=== PATIENT | male | born 1965 | race Caucasian/White ===

== ENCOUNTER → 2018-06-23 09:53 | Outpatient (CLI) | payer OTHER, SELFPAY ==
[2017-09-14 10:24] VITALS: BMI 29.8
--- NOTE | 2018-06-23 09:55 | RAD_ITS ---
STUDY: X-RAY - RIGHT KNEE REASON FOR EXAM: Knee pain. TECHNIQUE: 4 view(s) of the knee. COMPARISON: Radiographs 07/16/2016. FINDINGS: There are postoperative changes of the distal femur and proximal tibia from anterior cruciate ligament reconstruction. Normal proximal tibiofibular articulation. There is moderately severe joint space narrowing of the medial femorotibial compartment similar to the prior study. There is moderate joint space narrowing of the lateral femorotibial compartment, increased since the prior study. Normal patellofemoral articulation. There is a small joint effusion. 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 Small joint effusion. Electronically Signed: Magdiel Cornelius MD at 12:55 EST Tel , Service support ,
== END ==
PROVIDERS: Referring Provider Orthopaedic Surgery; Visit Provider Orthopaedic Surgery
DX: M25.561 Pain in right knee (principal)
CPT/HCPCS: 73564

== ENCOUNTER → 2023-08-13 | Outpatient (CLI) | payer OTHER, SELFPAY ==
[2023-08-13 12:22] LABS: Absolute Lymphocyte Count 1.41 X10^3/uL (0.83-4.51); Absolute Neutrophil Count 2.8 X10^3/uL (2.0-7.7); Basophil# 0.04 X10^3/uL; Basophil% 0.8 % (0-1); Eosinophil# 0.33 X10^3/uL; Eosinophils% 6.5 % (0-5); Hematocrit 44.2 % (40-54); Hemoglobin 14.8 g/dL (13.0-16.5); Lymphocyte # 1.41 X10^3/ul (0.83-4.51); Lymphocyte % 27.6 % (19-41); Mean Corp Hgb Conc 33.5 g/dL (32-36); Mean Corpuscular Hgb 30.2 pg (27.0-32.0); Mean Corpuscular Volume 90.2 fL (80-94); Mean Platelet Vol. 8.9 fl (6.2-12.0); Monocyte# 0.48 X10^3/uL; Monocyte% 9.4 % (0-10); NRBC Flagged by Analyzer 0 % (0-5); Neutrophil # 2.82 X10^3/uL (2.7-7.7); Neutrophil % 55.3 % (47-70); Platelet Count 253 K/mm3 (150-450); RBC Distribution Width CV 13.1 % (11.6-14.6); RBC Distribution Width SD 43.3 fl (35.1-43.9); White Blood Count 5.1 K/mm3 (4.4-11.0)
[2023-08-13 12:50] LABS: ALB/GLOB Ratio 1.1 RATIO (0.9-2.4); AST(SGOT) 23 U/L (15-37); Alanine Aminotransfer ALT/SGPT 51 U/L (16-61); Albumin, Serum 3.7 g/dL (3.2-5.0); Alkaline Phosphatase 55 U/L (45-117); Anion Gap 5 (5-15); BUN 22 mg/dL (7-18); BUN/Creat Ratio 22.6 RATIO (10-20); Calcium,Total 8.8 mg/dL (8.5-10.1); Chloride 109 mmol/L (98-107); Cholesterol 246 mg/dL (200); Creatinine, Serum 0.98 mg/dL (0.70-1.30); EST Glomerular Filtration Rate 84 mL/min (>60); Est Glom Filt Rate - Afr Amer 101 mL/min (>60); Globulin 3.4 g/dL (2.2-4.2); Glucose 119 mg/dL (74-106); High Density Lipoprotein 45 mg/dL; Potassium 4.2 mmol/L (3.5-5.1); Protein, Total 7.1 g/dL (6.4-8.2); Sodium Level 141 mmol/L (136-145); Triglycerides 166 mg/dL; Very Low Density Lipoprotein 33 mg/dL (5-40)
== END | disposition home or self-care (01) ==
LOC: BFHLAB 10:16
PROVIDERS: PCP Family Medicine; Visit Provider Family Medicine
DX: K21.9 Gastro-esophageal reflux disease without esophagitis (principal); F32.A Depression, unspecified; E78.5 Hyperlipidemia, unspecified
CPT/HCPCS: 36415; 80053; 80061; 85025

== ENCOUNTER 2023-12-30 13:00 | Outpatient (RCR) | payer OTHER, SELFPAY ==
--- NOTE | 2023-12-02 17:36 | HP.PTEVAL_ITS ---
Patient's Visit Information Visit Information Visit Information: PAULO RAMIRES is a 58 year old M referred to Physical Therapy by Dr. Raj Deal DO with a diagnosis of L TKA 11/29/23. Date of Evaluation: 12/02/23 Physical Therapist: Vazquez Reyes, PT, ATC Visit Plan Frequency: 2-3x /Week Duration: 4-6 Weeks Plan: L knee PROM/mobs, stretching and strengthening, balance and proprio, core strengthening, nustep, and HEP Subjective Subjective: DOS: 11/29/23. Pt reports he has had R knee pain chronically prior to having his R TKA. Pt reports he is glad to have had this surgery. Pt reports he was not is constant pain prior to the surgery, but notes he was very limited with activity secondary to pain. 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 Pt reports occasional sleep difficulty at this time secondary to pain. Pt denies any tingling or numbness in L LE at this time. Pt reports an extensive PMHx of knee complications in both of his knees as he has no ACL in either knee secondary to past injuries. Pt also notes a Hx of L compound tibial fx with ORIF. Pt reports he fully plans to return to performing his work duties when his healing is complete. Pt reports he lives mainly on one floor, but has to negotiate 3 steps to get into his house, which he is able to one step at a time. L knee pain is 1/10 pain while sitting here at rest, and only increases to 2/10 at worst. Pain L knee pain: Pain Intensity (Out of 10): 1 Pain Intensity Range: 2 Objective Objective: Neuro: B LE sensation is WNL to light touch Observation: Incision is healing well with not signs of infection. Bandage strip still present. ROM: L knee 0-10-60, R knee 0-125 MMT: R knee flex= 43, ext= 46 #F; L knee flex= 23, ext= 7 #F Tu.5 sec Balance/Special Test Scores WOMAC Total Score: 28 WOMAC Percentatge: 70.8400 Goals Goal 1:: Decrease L knee pain x 50% to aid with sleep Goal Time Frame: 4-6 Weeks Goal 2:: Increase L knee strength x 1 grade to aid with stair negotyiation Goal Time Frame: 4-6 Weeks Goal 3:: Increase L knee ROM x 40 degrees to aid with return to work requirements Goal Time Frame: 4-6 Weeks Goal 4:: I with HEP Goal Time Frame: 4-6 Weeks Rehabilitation Potential Physical Therapy Diagnosis: Pt has L knee pain, weakness, and limited ROM secondary to L TKA Rehabilitation Potential: Good Anticipated Interventions Patient/Client Instruction: Educate patient on: Condition and Plan of Care For the Purpose of:: To decrease pain, To increase ROM and To improve muscle performance and motor function Therapeutic Exercise to Include: Strength training, Endurance training, Balance training, Flexibilty training, Gait and locomotor training, Passive ROM, Active ROM and Dynamic Lumbar Stabilization For the Purpose of:: To decrease pain, To increase ROM and To improve muscle performance and motor function Cryotherapy (ice pack, ice massage): Yes For the Purpose of:: To decrease pain Text: Thank you for the opportunity to evaluate your patient. For Medicare and Medicare HMO plans, please review the plan of care and approve it. It will need to be FAXED BACK to us at [phone] for Medicare purposes. For Medicare only, by signing this I certify the plan of care. Please let me know if there are questions or concerns regarding this plan of care. Physician Signature: Date:
--- NOTE | 2023-12-30 14:26 | HP.PTDCSUM_ITS ---
Discharge Summary D/C summary: It has been my pleasure to treat PAULO RAMIRES referred by Dr. Raj Deal DO, with the diagnosis of L TKA 11/29/23 for a total of 9 visit(s). Discharge Date: 12/30/23 Please see the following information for a summary of their discharge status. Subjective Subjective: PATIENT REPORTS HE FEELS LIKE HIS KNEE REPLACEMENT HAS GONE REALLY WELL. PATIENT STATES I FEEL LIKE I SHOULD KEEP DOING MORE AT HOME. PATIENT REPORTS HE WANTS TO SAVE VISITS FOR HAVING HIS R KNEE DONE THIS YEAR SO HE WOULD LIKE TO BE DISCHARGED. Pain L knee pain: Pain Intensity (Out of 10): 3 Overall Improvement % Improvement: 75 Objective Objective/Function: ROM: L knee 0-0-105 MMT: R knee flex= 44.1, ext= 48.9 #F; L knee flex= 35.5, ext= 39.2 #F Tu.85 sec Girth Measurement L knee at joint line: 43.75 cm WOMAC Total Score: 35 Steps: ascends recip with one HR. descends one step at a time leading with RLE (R TKR pending). Other: patient has a stitch protruding at the bottom of his incision. He reports he noticed it about a week ago and has been pulling at it. This PT r ecommended he cover it and leave it alone until he see's Dr. Deal and to seek medical attention right away if it starts to show signs of infection. No signs of infection currently. Goals Goal 1:: Decrease L knee pain x 50% to aid with sleep Goal Progress: Goal Met Goal 2:: Increase L knee strength x 1 grade to aid with stair negotyiation Goal Progress: Goal Met Goal 3:: Increase L knee ROM x 40 degrees to aid with return to work requirements Goal Progress: Goal Met Goal 4:: I with HEP Goal Progress: Progressing Plan Plan: D/C AT PATIENTS REQUEST. D/C Information d/c sentence: If there are questions or concerns regarding this patient's physical therapy, please feel free to call me at [phone]. Thank you for the referral of this patient. Sincerely, Belinda Prince, PT, Cert MDT Balance/Gait/Functional tests Balance/Special Test Scores WOMAC Total Score: 35 WOMAC Percentage: 63.5500 Improvement % Improvement: 75
== END 2023-12-30 19:00 | disposition home or self-care (01) ==
LOC: PT 13:00
PROVIDERS: PCP Family Medicine; Referring Provider Orthopaedic Surgery; Visit Provider Orthopaedic Surgery
DX: Z47.1 Aftercare following joint replacement surgery (principal); M17.12 Unilateral primary osteoarthritis, left knee; Z96.652 Presence of left artificial knee joint
CPT/HCPCS: 97110; 97140; 97161; 97530

== ENCOUNTER 2024-06-22 19:53 | Observation (INO) | payer OTHER, SELFPAY ==
[2024-06-22 19:54] VITALS: BP 149/88; PULSE 109; RESP 20; TEMP 36.3; O2SAT 96; BMI 28.3
--- NOTE | 2024-06-22 20:44 | EKG12_ITS ---
Test Reason : CP Blood Pressure : */* mmHG Vent. Rate : 91 BPM Atrial Rate : 91 BPM P-R Int : 164 ms QRS Dur : 92 ms QT Int : 344 ms P-R-T Axes : 42 -42 34 degrees QTcB Int : 423 ms Normal sinus rhythm Left axis deviation Abnormal ECG Confirmed by BERENICE FORRESTER, BECK ([id number]), web editor ANAYELI CERDA ([id number]) on 06/27/2024 7:52:21 AM Referred By: HUMPHREY Confirmed By: BECK NG MD
[2024-06-22 20:51] LABS: Absolute Lymphocyte Count 1.76 X10^3/uL (0.83-4.51); Absolute Neutrophil Count 4.8 X10^3/uL (2.0-7.7); Basophil# 0.05 X10^3/uL; Basophil% 0.6 % (0-1); Eosinophil# 0.27 X10^3/uL; Eosinophils% 3.5 % (0-5); Hematocrit 40.3 % (40-54); Hemoglobin 13.5 g/dL (13.0-16.5); Lymphocyte # 1.76 X10^3/ul (0.83-4.51); Lymphocyte % 22.7 % (19-41); Mean Corp Hgb Conc 33.5 g/dL (32-36); Mean Corpuscular Hgb 28.9 pg (27.0-32.0); Mean Corpuscular Volume 86.3 fL (80-94); Mean Platelet Vol. 8.6 fl (6.2-12.0); Monocyte# 0.84 X10^3/uL; Monocyte% 10.8 % (0-10); NRBC Flagged by Analyzer 0 % (0-5); Neutrophil # 4.82 X10^3/uL (2.7-7.7); Platelet Count 323 K/mm3 (150-450); RBC Distribution Width CV 11.9 % (11.6-14.6); RBC Distribution Width SD 37.5 fl (35.1-43.9); Red Blood Count 4.67 M/mm3 (4.6-6.2); White Blood Count 7.8 K/mm3 (4.4-11.0)
--- NOTE | 2024-06-22 21:02 | RAD_ITS ---
INDICATION: chest pain EXAMINATION/TECHNIQUE: X-RAY - XR Chest 1 View COMPARISON: 06/22/2017 chest radiograph. Findings: Single frontal view of the chest. LUNG PARENCHYMA: No acute focal airspace disease or mass lesion. Bibasilar thin linear scarring again noted. PLEURA: No pleural effusion. No pneumothorax. HEART/GREAT VESSELS: Cardiomediastinal silhouette is unremarkable. BONES: Osseous structures are unremarkable for age. RAD/Chest 1 View (Portable) IMPRESSION: Stable chest with no acute disease. Electronically Signed: Willie Wilson MD at 21:23 EST ,
[2024-06-22 21:08] LABS: Anion Gap 7 (5-15); BUN 18 mg/dL (7-18); BUN/Creat Ratio 18.4 RATIO (10-20); Calcium,Total 9.8 mg/dL (8.5-10.1); Chloride 100 mmol/L (98-107); Creatinine, Serum 0.98 mg/dL (0.70-1.30); EST Glomerular Filtration Rate 83 mL/min (>60); Est Glom Filt Rate - Afr Amer 101 mL/min (>60); Estimated Creatinine Clearance 92.99 ml/min; Glucose 106 mg/dL (74-106); Sodium Level 135 mmol/L (136-145); Troponin-I HS (w/2H Reflex) 112 pg/mL (3.0-78.0)
[2024-06-22 21:49] VITALS: BP 156/90; PULSE 95; RESP 13; O2SAT 91
[2024-06-22 21:50] VITALS: O2SAT 92
[2024-06-22 22:05] LABS: D-Dimer Quantitative (DVT/PE) 2.69 FEU/ug/m (0.27-0.49)
[2024-06-22 22:11] LABS: Lactic Acid 1.3 mmol/L (0.4-1.9)
--- NOTE | 2024-06-22 22:34 | EDS_ITS ---
[facility] <Dr. Melquiades Ling MD - Last Filed: 06/22/24 23:30> History of Present Illness Chief Complaint: General Illness Detail of Chief Complaint: Chest pain and lower pelvic pain Informant: patient Onset/Context/Timing Onset: Days (Pelvic pain has been present for several days. There is a positional component. Chest pain Per HPI narrative) Context: Sudden Onset Timing: Intermittent Quality: Pain across his chest started Wednesday. Has had several episodes since Sat Location: Anterior chest and lower quadrant/pelvic region bilaterally Current Severity: Gone Maximum Severity: Moderate Worsened by: Abdominal pain due to movement chest pain nothing Relieved by: Tramadol oxycodone for both Associated Symptoms Associated Symptoms: Chest pain is associated with shortness of breath. He also has a cough pro Narrative Narrative: Patient is a 59-year-old male. He is status post knee surgery 1 month ago. He presents because of pain in the pelvic area for several days and since Wednesday he had intermittent anterior chest pain. The chest pain has been associated with diaphoresis. He has had no fever, chills night sweats. Does report cough productive of sputum. States that he takes a deep breath he does have pleuritic chest pain. He denies presently any knee pain or lower extremity exam. Is not noted any discoloration of his lower extremities and there is no swelling other than swelling around the surgical site of his right knee. He did report some mild congestion in his nose he no longer has this. He does e ndorse hoarse voice. He denies nausea, vomiting diarrhea. Nuys constipation. He denies urologic symptoms. He is presently not on an anticoagulant. Patient was asked why he presented today since has been going on for days. He is concerned that he has pneumonia. Prior similar symptoms: No Recent Illness/Hospitalization: Yes [facility] <Dr. Melquiades Ling MD - Last Filed: 06/22/24 23:30> [facility] Medical History GERD (gastroesophageal reflux disease) Depression with anxiety Arthritis Inguinal hernia of left side without obstruction or gangrene Fracture of coccyx Partial tear of left rotator cuff Asthma Home Medications ?Medication ?Instructions ?Recorded ?Last Taken ?Type albuterol sulfate 90 mcg/actuation 2 puff inhalation Q6H PRN 05/08/23 Unknown Rx aerosol inhaler shortness of breath or wheezing #6.7 grams acetaminophen 500 mg tablet 500 mg PO Q6H PRN fever or pain 06/22/24 Unknown History aspirin 81 mg tablet,delayed 81 mg PO Q12H 06/22/24 Unknown History release budesonide-formoterol HFA 160 2 puff inhalation Q12H 06/22/24 Unknown History mcg-4.5 mcg/actuation aerosol inhaler (Symbicort) cyclobenzaprine 5 mg tablet 5 mg PO DAILY 06/22/24 Unknown History omeprazole 40 mg capsule,delayed 40 mg PO DAILY 06/22/24 Unknown History release oxycodone 5 mg tablet 5 mg PO Q6H PRN pain 06/22/24 Unknown History tadalafil 5 mg tablet 5 mg PO DAILY 06/22/24 Unknown History tramadol 50 mg tablet 50 mg PO Q6H PRN PRN pain 06/22/24 Unknown History Allergy/AdvReac Type Severity Reaction Status Date / Time No Known Allergies Allergy Verified 06/22/24 19:54 Family History Father Myocardial infarction Mother Asthma Arthritis Surgical History History of right knee joint replacement History of left knee replacement H/O rotator cuff surgery Social History household members: spouse housing: house Smoking Status: Never smoker alcohol intake: current alcohol intake frequency: a few times a week Alcohol type: beer substance use type: does not use ROS <Dr. Melquiades Ling MD - Last Filed: 06/22/24 23:30> ROS ED Constitutional Constitutional ED: Reports chills and other Details: Patient reported having chills. He put the thermostat to 78 and still felt cold and had to bundle up with blankets. ; Denies fever(s), subjective, sweats or weight loss Eyes Eyes: Denies blurry vision, change in vision or diplopia ENT ENT ED: Denies ear pain, rhinorrhea or sore throat Cardiovascular Cardiovascular: Reports chest pain; Denies orthopnea, palpitations, paroxysmal nocturnal dyspnea or racing heartbeat Respiratory/Chest Respiratory/Chest: Reports cough, dyspnea, sputum and other Details: Sputum is beige in color. There is no blood per patient. ; Denies dyspnea on exertion, orthopnea or paroxysmal nocturnal dyspnea Gastrointestinal Gastrointestinal: Reports abdominal pain, nausea and other Details: Patient has a known left inguinal hernia that is not reducible. He is seeing Dr. Louise for this. ; Denies vomiting Genitourinary Genitourinary ED: Denies dysuria, hematuria or urinary frequency Musculoskeletal Musculoskeletal: Denies arthralgias, back pain, myalgias or neck pain Integumentary Denies rash Neurologic Neurologic: Denies headache(s) or paresthesias Endocrine Endocrinology: Denies cold intolerance or heat intolerance Hematologic/Lymphatic Hematologic/Lymphatic: Reports systems reviewed and no addt'l complaints, except as documented EXAM <Dr. Melquiades Ling MD - Last Filed: 06/22/24 23:30> Physical Exam Const Vital Signs: 06/22/24 19:54 06/22/24 21:24 06/22/24 21:49 Temperature 97.4 F L Temperature Source Oral Pulse Rate 109 H 95 Respiratory Rate 20 H 13 Respiratory Effort Normal Non-Labored Respiratory Pattern Normal Blood Pressure 149/88 H 156/90 H Blood Pressure Mean 108 112 Pulse Ox 96 91 Oxygen Delivery Method Room Air 06/22/24 21:50 06/22/24 22:44 06/22/24 23:00 Temperature Temperature Source Pulse Rate 104 H Respiratory Rate 9 L Respiratory Effort Normal Non-Labored Respiratory Pattern Normal Blood Pressure 145/94 H Blood Pressure Mean 110 Pulse Ox 92 92 Oxygen Delivery Method Room Air 06/22/24 23:30 06/22/24 23:45 06/23/24 00:00 Temperature Temperature Source Pulse Rate 102 H 106 H Respiratory Rate 12 27 H Respiratory Effort Respiratory Pattern Blood Pressure 137/96 H 115/73 Blood Pressure Mean 106 86 Pulse Ox 91 Oxygen Delivery Method 06/23/24 00:08 06/23/24 00:15 06/23/24 00:30 Temperature 99 F Temperature Source Oral Pulse Rate 103 H 101 H 103 H Respiratory Rate 17 11 L 12 Respiratory Effort Respiratory Pattern Blood Pressure 133/93 H Blood Pressure Mean 106 Pulse Ox 95 Oxygen Delivery Method Room Air 06/23/24 00:30 06/23/24 00:45 06/23/24 01:00 Temperature Temperature Source Pulse Rate 111 H 100 108 H Respiratory Rate 19 H 10 L 20 H Respiratory Effort Respiratory Pattern Blood Pressure 133/93 H 142/86 H Blood Pressure Mean 107 103 Pulse Ox 100 95 Oxygen Delivery Method Room Air 06/23/24 01:15 06/23/24 01:30 06/23/24 01:45 Temperature Temperature Source Pulse Rate 104 H 107 H Respiratory Rate 10 L 13 Respiratory Effort Respiratory Pattern Blood Pressure 142/92 H Blood Pressure Mean 105 Pulse Ox Oxygen Delivery Method 06/23/24 02:00 Temperature Temperature Source Pulse Rate 101 H Respiratory Rate 113 H Respiratory Effort Respiratory Pattern Blood Pressure 142/99 H Blood Pressure Mean 110 Pulse Ox 96 Oxygen Delivery Method Room Air Positive well nourished and well developed Constitutional Narrative: Blood pressure noted to be elevated. He is tachycardic. He is not hypoxic. General Appearance ED: well developed and NAD; Negative for cyanotic or di aphoretic HEENT Reports moist mucous membranes HEENT Narrative: Head is atraumatic, cephalic. Ears normal. Nares patent. Posterior pharynx is normal. Eyes PERRL and EOMs intact bilaterally General Eye ED: Negative for pale conjunctiva or scleral icterus Neck no lymphadenopathy, supple and no JVD Chest Wall inspection of chest normal and palpation of chest normal Resp normal respiratory effort and clear to auscultation bilaterally Cardio regular rate, regular rhythm, S1 normal heart sound, S2 normal heart sound and no murmurs GI normal to inspection, nondistended, normoactive bowel sounds, non-tender, non- distended and no masses; Negative for hepatosplenomegaly GI Narrative: Patient has a nonreducible left inguinal hernia. There is discomfort when I attempt to reduce it. Narrative: Circumcised. No penile lesions or discharge. Testes descended bilaterally. There is no scrotal swelling. Back/Spine no CVA tenderness Extremity normal to inspection Extremity Narrative: There is no asymmetry, swelling, discoloration, leg vein distention, palpable cords or tenderness along the distribution of the deep venous system. Neuro oriented x3 and CN's II-XII intact bilaterally Sensorium / Orientation: alert Psych mental status grossly normal Skin Skin Narrative: Patient has a small reddened area at one of the inferior suture sites right knee. There is no concern for cellulitis. <Dr. Thor Yeh, DO - Last Filed: 06/23/24 02:31> Physical Exam Const Vital Signs: 06/22/24 19:54 06/22/24 21:24 06/22/24 21:49 Temperature 97.4 F L Temperature Source Oral Pulse Rate 109 H 95 Respiratory Rate 20 H 13 Respiratory Effort Normal Non-Labored Respiratory Pattern Normal Blood Pressure 149/88 H 156/90 H Blood Pressure Mean 108 112 Pulse Ox 96 91 Oxygen Delivery Method Room Air 06/22/24 21:50 06/22/24 22:44 06/22/24 23:00 Temperature Temperature Source Pulse Rate 104 H Respiratory Rate 9 L Respiratory Effort Normal Non-Labored Respiratory Pattern Normal Blood Pressure 145/94 H Blood Pressure Mean 110 Pulse Ox 92 92 Oxygen Delivery Method Room Air 06/22/24 23:30 06/22/24 23:45 06/23/24 00:00 Temperature Temperature Source Pulse Rate 102 H 106 H Respiratory Rate 12 27 H Respiratory Effort Respiratory Pattern Blood Pressure 137/96 H 115/73 Blood Pressure Mean 106 86 Pulse Ox 91 Oxygen Delivery Method 06/23/24 00:08 06/23/24 00:15 06/23/24 00:30 Temperature 99 F Temperature Source Oral Pulse Rate 103 H 101 H 103 H Respiratory Rate 17 11 L 12 Respiratory Effort Respiratory Pattern Blood Pressure 133/93 H Blood Pressure Mean 106 Pulse Ox 95 Oxygen Delivery Method Room Air 06/23/24 00:30 06/23/24 00:45 06/23/24 01:00 Temperature Temperature Source Pulse Rate 111 H 100 108 H Respiratory Rate 19 H 10 L 20 H Respiratory Effort Respiratory Pattern Blood Pressure 133/93 H 142/86 H Blood Pressure Mean 107 103 Pulse Ox 100 95 Oxygen Delivery Method Room Air 06/23/24 01:15 06/23/24 01:30 06/23/24 01:45 Temperature Temperature Source Pulse Rate 104 H 107 H Respiratory Rate 10 L 13 Respiratory Effort Respiratory Pattern Blood Pressure 142/92 H Blood Pressure Mean 105 Pulse Ox Oxygen Delivery Method 06/23/24 02:00 Temperature Temperature Source Pulse Rate 101 H Respiratory Rate 113 H Respiratory Effort Respiratory Pattern Blood Pressure 142/99 H Blood Pressure Mean 110 Pulse Ox 96 Oxygen Delivery Method Room Air MDM <Dr. Melquiades Ling MD - Last Filed: 06/22/24 23:30> [facility] MDM Narrative Medical decision making narrative: Patient's abdominal pain is uncertain. I do not believe this is due to his nonreducible hernia. He has a benign exam and except when I attempted to reduce his hernia which is apparently done reducible. And has been out for some time. Chest pain may be due to pneumonia, PE, cardiac or GI etiology. EKG, chest x- ray appropriate blood work was obtained. Lab Data Attestation: I reviewed the patient's lab results. Lab results narrative: CBC is unremarkable. D-dimer is elevated 2.69 and elevated even after correction for age. Electrolyte panel is unremarkable. First troponin is elev ated to 112. Lactate is normal at 1.3. Labs: Laboratory Results - last 24 hr 06/22/24 06/22/24 06/22/24 20:40 20:43 21:38 WBC 7.8 RBC 4.67 Hgb 13.5 Hct 40.3 MCV 86.3 MCH 28.9 MCHC 33.5 RDW Std Deviation 37.5 RDW Coeff of Lindsey 11.9 Plt Count 323 MPV 8.6 Immature Gran % (Auto) 0.400 Neut % (Auto) 62.0 Lymph % (Auto) 22.7 Casey % (Auto) 10.8 H Eos % (Auto) 3.5 Baso % (Auto) 0.6 Absolute Neuts (auto) 4.8 Absolute Lymphs (auto) 1.76 Nucleated RBC % 0 D-Dimer Quant (PE/DVT) 2.69 H* Sodium 135 L Potassium 4.0 Chloride 100 Carbon Dioxide 28.0 Anion Gap 7 BUN 18 Creatinine 0.98 Estim Creat Clear Calc 92.99 Est GFR (MDRD) Af Amer 101 Est GFR (MDRD) Non-Af 83 BUN/Creatinine Ratio 18.4 Glucose 106 Lactic Acid 1.3 Calcium 9.8 Troponin I High Sens 112 H 06/22/24 06/22/24 22:50 23:05 WBC RBC Hgb Hct MCV MCH MCHC RDW Std Deviation RDW Coeff of Lindsey Plt Count MPV Immature Gran % (Auto) Neut % (Auto) Lymph % (Auto) Casey % (Auto) Eos % (Auto) Baso % (Auto) Absolute Neuts (auto) Absolute Lymphs (auto) Nucleated RBC % D-Dimer Quant (PE/DVT) Sodium Potassium Chloride Carbon Dioxide Anion Gap BUN Creatinine Estim Creat Clear Calc Est GFR (MDRD) Af Amer Est GFR (MDRD) Non-Af BUN/Creatinine Ratio Glucose Lactic Acid Calcium Troponin I High Sens 98 H 97 H Repeat troponin is 98. First troponin was 112. Radiography Chest X-Ray - ED: 1 View, Read by ED Physician, Unchanged, Normal, Heart, Mediastinum, Bony Structures, No Acute Disease and Chronic Changes Diagnostic Testing: Clinical Impression(s) from Imaging Studies Chest X-Ray 06/22/24 21:02 IMPRESSION: Stable chest with no acute disease. Electronically Signed: Willie Wilson MD at 21:23 EST , Chest CTA 06/22/24 23:04 IMPRESSION: Bibasilar thick linear atelectasis versus scarring. Otherwise, no significant acute abnormality of the chest identified. Distal pulmonary artery branch vessel evaluation is suboptimal secondary to timing of contrast bolus as well as respiratory motion, however, there is no obvious proximal pulmonary embolus. No acute thoracic aortic abnormality. Fatty liver. Pulmonary nodules. Recommend comparison with previous imaging to document long-term stability versus follow-up evaluation as per Fleischner guidelines as neoplastic process is not excluded. Electronically Signed: Willie Wilson MD at 1:55 EST , Treatment and Re-Evaluation :: With an elevated D-dimer normal chest x-ray recent surgery pleuritic pain CTA of the chest was obtained. This may be the cause of his elevated troponin and if there is a significant blood clot otherwise need to evaluate for cardiac etiology of his chest pain with the elevated troponin. Comments:: Care was transferred to the night physician Dr. David Yeh. Patient was informed that once the CAT scan is read Dr. Yeh will inform of results and contact hospitalist for admission to evaluate the elevated troponin and cause of his chest pain. <Dr. Thor Yeh, DO - Last Filed: 06/23/24 02:31> [facility] Lab Data Labs: Laboratory Results - last 24 hr 06/22/24 06/22/24 06/22/24 20:40 20:43 21:38 WBC 7.8 RBC 4.67 Hgb 13.5 Hct 40.3 MCV 86.3 MCH 28.9 MCHC 33.5 RDW Std Deviation 37.5 RDW Coeff of Lindsey 11.9 Plt Count 323 MPV 8.6 Immature Gran % (Auto) 0.400 Neut % (Auto) 62.0 Lymph % (Auto) 22.7 Casey % (Auto) 10.8 H Eos % (Auto) 3.5 Baso % (Auto) 0.6 Absolute Neuts (auto) 4.8 Absolute Lymphs (auto) 1.76 Nucleated RBC % 0 D-Dimer Quant (PE/DVT) 2.69 H* Sodium 135 L Potassium 4.0 Chloride 100 Carbon Dioxide 28.0 Anion Gap 7 BUN 18 Creatinine 0.98 Estim Creat Clear Calc 92.99 Est GFR (MDRD) Af Amer 101 Est GFR (MDRD) Non-Af 83 BUN/Creatinine Ratio 18.4 Glucose 106 Lactic Acid 1.3 Calcium 9.8 Troponin I High Sens 112 H 06/22/24 06/22/24 22:50 23:05 WBC RBC Hgb Hct MCV MCH MCHC RDW Std Deviation RDW Coeff of Lindsey Plt Count MPV Immature Gran % (Auto) Neut % (Auto) Lymph % (Auto) Casey % (Auto) Eos % (Auto) Baso % (Auto) Absolute Neuts (auto) Absolute Lymphs (auto) Nucleated RBC % D-Dimer Quant (PE/DVT) Sodium Potassium Chloride Carbon Dioxide Anion Gap BUN Creatinine Estim Creat Clear Calc Est GFR (MDRD) Af Amer Est GFR (MDRD) Non-Af BUN/Creatinine Ratio Glucose Lactic Acid Calcium Troponin I High Sens 98 H 97 H Radiography Diagnostic Testing: Clinical Impression(s) from Imaging Studies Chest X-Ray 06/22/24 21:02 IMPRESSION: Stable chest with no acute disease. Electronically Signed: Willie Wilson MD at 21:23 EST , Chest CTA 06/22/24 23:04 IMPRESSION: Bibasilar thick linear atelectasis versus scarring. Otherwise, no significant acute abnormality of the chest identified. Distal pulmonary artery branch vessel evaluation is suboptimal secondary to timing of contrast bolus as well as respiratory motion, however, there is no obvious proximal pulmonary embolus. No acute thoracic aortic abnormality. Fatty liver. Pulmonary nodules. Recommend comparison with previous imaging to document long-term stability versus follow-up evaluation as per Fleischner guidelines as neoplastic process is not excluded. Electronically Signed: Willie Wilson MD at 1:55 EST , Treatment and Re-Evaluation :: With an elevated D-dimer normal chest x-ray recent surgery pleuritic pain CTA of the chest was obtained. This may be the cause of his elevated troponin and if there is a significant blood clot otherwise need to evaluate for cardiac etiology of his chest pain with the elevated troponin. Addendum: 0230 hrs.: CTA of the chest returns without definitive pulmonary embolism. Timing and motion artifact limits the study. I do not see an obvious pneumonia. I will speak with the hospitalist regarding admission given the elevated troponins with atypical pain. Discharge Plan Dx/Rx/DC Orders Clinical Impression: Anterior chest wall pain, Elevated troponin, Elevated d-dimer, Incarcerated left inguinal hernia, Bronchitis, History of asthma, Elevated blood-pressure reading without diagnosis of hypertension Disposition Disposition: Acute Care Hospital [facility]
[2024-06-22 22:49] LABS: Reflex Troponin-HS? (from REC) Y
[2024-06-22 23:00] VITALS: BP 145/94; PULSE 104; RESP 9; O2SAT 92
--- NOTE | 2024-06-22 23:04 | CT_ITS ---
INDICATION: Pleuritic chest pain, elevated D-dimer, recent kne EXAMINATION: - CTA Chest WO/W Contrast Injection A radiation dose optimization technique was used for this scan. RADIATION DOSAGE (If Supplied By Facility): CTDIvol/DLP = ( 15.95 ) / ( 523.98 ) mGy/mGycm COMPARISON: Chest radiograph same day. FINDINGS: Contrast enhanced serial CTA axial images through the chest with coronal and sagittal reformatted series. Additional dedicated coronal and sagittal MIP reformatted series provided as well. IV Contrast dosage and agent: 100 cc [id number] IV. MEDIASTINUM: No acute thoracic aortic abnormality. Distal pulmonary artery branch vessel evaluation is suboptimal secondary to timing of contrast bolus as well as respiratory motion, however, there are no obvious proximal pulmonary artery filling defects. Mediastinal adenopathy measuring up to 12 mm in the short axis in the precarinal region. PULMONARY PARENCHYMA: Bibasilar thick linear atelectasis versus scarring. Otherwise, no significant acute pulmonary parenchymal abnormality. Anteromedial right middle lobe 5 mm pulmonary nodule on axial image 71 of series 2. Dominant 7 mm fissural pulmonary nodule on the left on axial image 109. PLEURA: No pleural effusion. No pneumothorax. BONES: Osseous structures are unremarkable for age. UPPER ABDOMEN: Fatty liver. CT/CTA Chest W/WO Contrast IMPRESSION: Bibasilar thick linear atelectasis versus scarring. Otherwise, no significant acute abnormality of the chest identified. Distal pulmonary artery branch vessel evaluation is suboptimal secondary to timing of contrast bolus as well as respiratory motion, however, there is no obvious proximal pulmonary embolus. No acute thoracic aortic abnormality. Fatty liver. Pulmonary nodules. Recommend comparison with previous imaging to document long-term stability versus follow-up evaluation as per Fleischner guidelines as neoplastic process is not excluded. Electronically Signed: Willie Wilson MD at 1:55 EST ,
[2024-06-22 23:12] LABS: Troponin-I HS 98 pg/mL (3.0-78.0)
[2024-06-22 23:30] VITALS: BP 137/96; PULSE 102; RESP 12; O2SAT 91
[2024-06-22 23:38] LABS: Troponin-I HS 97 pg/mL (3.0-78.0)
[2024-06-22 23:45] VITALS: PULSE 106; RESP 27
[2024-06-23] VITALS (16 sets, daily range): BP systolic 115–150; BP diastolic 73–102; PULSE 85–111; RESP 10–113; TEMP 36.4–37.2; O2SAT 93–100; BMI 30.2
--- NOTE | 2024-06-23 01:21 | ED.RN ---
CALLED RADIOLOGY FOR PROLONGED CT READ TIME. RADIOLOGY RESPONSE IT IS IN DICTATION
--- NOTE | 2024-06-23 02:19 | PCM.HP.STD ---
HPI - General General Date of Admission: 06/23/24 Date of Service: 06/23/24 Chief Complaint: Dyspnea, chest pain, BL LE thigh->lower bilateral abd pain. HPI Narrative The patient is a 59 y/o M w/ PMHx: Anxiety and Depression, GERD, Asthma, OA who presents to the [facility] ED on 06/23/24 with history of recent RTK replacement surgery approximately 3-4 weeks prior with onset of lower abdominal discomfort, chest discomfort and bilateral leg pain with PCP evaluation and treatment with pain regimen as well as muscle relaxers however his pain worsened on the evening of presentation prompting eventual ED evaluation to be cautious. He reports the chest and lower abdominal/pelvic discomfort is more positional and intermittent starting initially on Wednesday with separate episodes since with associated dyspnea as well as recent mild productive cough. Chest discomfort and lower abdominal discomfort as well as upper leg more of an aching, constant discomfort. He denies any recent fevers or chills. He does report some diaphoresis when he has episodes of chest discomfort. He denies any significant lower extremity swelling following his recent intervention. He does report recent increased urinary frequency but no dysuria or foul smelling urine. Workup in the ED included T97.4, heart rate 109, BP 149/88, respiratory rate 20, 96% on room air, CBC with WBC 7.8, human 13.5, platelet 323 without marked shift, BMP with sodium 135 otherwise unremarkable, initial troponin 112 with repeat delta troponin 98 and for some reason a repeat troponin shortly following this 97, chest x-ray with no acute cardiopulmonary findings, D-dimer 2.69, CTPA with bibasilar thick linear atelectasis versus scarring otherwise no significant acute abnormality of the chest identified, distal pulmonary artery branch vessel evaluation suboptimal secondary to timing of contrast bolus as well as respiratory motion however there is no obvious proximal pulmonary embolus, no acute aortic thoracic abnormality, fatty liver, evidence of pulmonary nodules with recommended follow-up comparison evaluation outpatient, EKG with SR without acute evidence of ischemia. [facility] Medical History GERD (gastroesophageal reflux disease) Depression with anxiety Arthritis Inguinal hernia of left side without obstruction or gangrene Fracture of coccyx Partial tear of left rotator cuff Asthma Home Medications ?Medication ?Instructions ?Recorded ?Last Taken ?Type albuterol sulfate 90 mcg/actuation 2 puff inhalation Q6H PRN 05/08/23 Unknown Rx aerosol inhaler shortness of breath or wheezing #6.7 grams acetaminophen 500 mg tablet 500 mg PO Q6H PRN fever or pain 06/22/24 Unknown History aspirin 81 mg tablet,delayed 81 mg PO Q12H 06/22/24 Unknown History release budesonide-formoterol HFA 160 2 puff inhalation Q12H 06/22/24 Unknown History mcg-4.5 mcg/actuation aerosol inhaler (Symbicort) cyclobenzaprine 5 mg tablet 5 mg PO DAILY 06/22/24 Unknown History omeprazole 40 mg capsule,delayed 40 mg PO DAILY 06/22/24 Unknown History release oxycodone 5 mg tablet 5 mg PO Q6H PRN pain 06/22/24 Unknown History tadalafil 5 mg tablet 5 mg PO DAILY 06/22/24 Unknown History tramadol 50 mg tablet 50 mg PO Q6H PRN PRN pain 06/22/24 Unknown History Allergy/AdvReac Type Severity Reaction Status Date / Time No Known Allergies Allergy Verified 06/22/24 19:54 Family History Father Myocardial infarction Mother Asthma Arthritis Surgical History History of right knee joint replacement History of left knee replacement H/O rotator cuff surgery Social History household members: spouse housing: house Smoking Status: Never smoker alcohol intake: current alcohol intake frequency: a few times a week Alcohol type: beer substance use type: does not use ROS ROS Narrative Admission Review of Systems: CONSTITUTIONAL: No weight loss, fever, chills, + weakness or fatigue. HEENT: + Recent congestion, rhinorrhea, sore throat, hoarse voice. Eyes: No visual loss, blurred vision, double vision or yellow sclerae. Ears, Nose, Throat: No hearing loss, sneezing. SKIN: No rash or itching, lesions, wounds except + healing R knee incision. CARDIOVASCULAR: + Chest pain. No palpitations, edema, orthopnea, syncopal events. RESPIRATORY: + Dyspnea, mildly productive cough. No wheezing, hemoptysis. GASTROINTESTINAL: No anorexia, nausea, vomiting or diarrhea, abdominal pain, melena, BRBPR. GENITOURINARY: No dysuria, frequency, urgency or retention. NEUROLOGICAL: No headache, dizziness, syncope, paralysis, ataxia, numbness or tingling in the extremities, focal weakness, change in bowel or bladder control, seizure. MUSCULOSKELETAL: + muscle, back pain, joint pain or stiffness. HEMATOLOGIC: No anemia, bleeding or bruising. LYMPHATICS: No enlarged nodes. No history of splenectomy. PSYCHIATRIC: No history of depression or anxiety. ENDOCRINOLOGIC: + Episodes of diaphoresis. No cold or heat intolerance. No polyuria or polydipsia. ALLERGIES: + History of asthma. Vital Signs Vital Signs Vital Signs: 06/22/24 19:54 06/22/24 21:24 06/22/24 21:49 Temperature 97.4 F L Temperature Source Oral Pulse Rate 109 H 95 Respiratory Rate 20 H 13 Respiratory Effort Normal Non-Labored Respiratory Pattern Normal Blood Pressure 149/88 H 156/90 H Blood Pressure Mean 108 112 Pulse Ox 96 91 Oxygen Delivery Method Room Air 06/22/24 21:50 06/22/24 22:44 06/22/24 23:00 Temperature Temperature Source Pulse Rate 104 H Respiratory Rate 9 L Respiratory Effort Normal Non-Labored Respiratory Pattern Normal Blood Pressure 145/94 H Blood Pressure Mean 110 Pulse Ox 92 92 Oxygen Delivery Method Room Air 06/22/24 23:30 06/22/24 23:45 06/23/24 00:00 Temperature Temperature Source Pulse Rate 102 H 106 H Respiratory Rate 12 27 H Respiratory Effort Respiratory Pattern Blood Pressure 137/96 H 115/73 Blood Pressure Mean 106 86 Pulse Ox 91 Oxygen Delivery Method 06/23/24 00:08 06/23/24 00:15 06/23/24 00:30 Temperature 99 F Temperature Source Oral Pulse Rate 103 H 101 H 103 H Respiratory Rate 17 11 L 12 Respiratory Effort Respiratory Pattern Blood Pressure 133/93 H Blood Pressure Mean 106 Pulse Ox 95 Oxygen Delivery Method Room Air 06/23/24 00:30 06/23/24 00:45 06/23/24 01:00 Temperature Temperature Source Pulse Rate 111 H 100 108 H Respiratory Rate 19 H 10 L 20 H Respiratory Effort Respiratory Pattern Blood Pressure 133/93 H 142/86 H Blood Pressure Mean 107 103 Pulse Ox 100 95 Oxygen Delivery Method Room Air 06/23/24 01:15 06/23/24 01:30 06/23/24 01:45 Temperature Temperature Source Pulse Rate 104 H 107 H Respiratory Rate 10 L 13 Respiratory Effort Respiratory Pattern Blood Pressure 142/92 H Blood Pressure Mean 105 Pulse Ox Oxygen Delivery Method 06/23/24 02:00 Temperature Temperature Source Pulse Rate 101 H Respiratory Rate 113 H Respiratory Effort Respiratory Pattern Blood Pressure 142/99 H Blood Pressure Mean 110 Pulse Ox 96 Oxygen Delivery Method Room Air Weight Weight: 203 lb 0.732 oz Body Mass Index (BMI) 28.3 Physical Exam Narrative Physical Examination: General: Awake, alert, oriented x 3 and cooperative, seated upright in the ED bed in no apparent distress, notes ongoing persistent mild discomfort in his anterior chest. Skin: Normal color, normal turgor, no icterus, no cyanosis except occasional state ecchymoses, abrasion, healing right total knee replacement incision. HEENT: AT/NC, EOMI, PERRLA, MMM, no carotid bruits or JVD noted. Lungs: Mildly diminished, greater bases, decreased effort, no rales, ronchi or wheezing. Heart: Regular rate and rhythm; no gallop, rub audible. Abdomen: Soft, overweight, NTTP including the bilateral lower quadrants, ND, normal BS, no appreciated HSM. Extremities: No cyanosis, clubbing or marked peripheral edema, see skin. Neurological: Patient awake, alert, oriented as noted, cognitive function intact; pupils equally reactive to light and accommodation, cranial nerves grossly normal, moving all 4 extremities, no focal deficits, strength mildly globally decreased given acute presentation complaints. Psychiatric: Affect appears fatigued otherwise normal, no acute evidence of depressive or anxiety feelings. Results Lab / Micro Data 06/22/24 20:40 06/22/24 20:40 Labs: Laboratory Results - last 24 hr 06/22/24 20:40: WBC 7.8, RBC 4.67, Hgb 13.5, Hct 40.3, MCV 86.3, MCH 28.9, MCHC 33.5, RDW Std Deviation 37.5, RDW Coeff of Lindsey 11.9, Plt Count 323, MPV 8.6, Immature Gran % (Auto) 0.400, Neut % (Auto) 62.0, Lymph % (Auto) 22.7, Winn % (Auto) 10.8 H, Eos % (Auto) 3.5, Baso % (Auto) 0.6, Absolute Neuts (auto) 4.8, Absolute Lymphs (auto) 1.76, Nucleated RBC % 0, Sodium 135 L, Potassium 4.0, Chloride 100, Carbon Dioxide 28.0, Anion Gap 7, BUN 18, Creatinine 0.98, Estim Creat Clear Calc 92.99, Est GFR (MDRD) Af Amer 101, Est GFR (MDRD) Non-Af 83, BUN/Creatinine Ratio 18.4, Glucose 106, Calcium 9.8, Troponin I High Sens 112 H 06/22/24 20:43: D-Dimer Quant (PE/DVT) 2.69 H* 06/22/24 21:38: Lactic Acid 1.3 06/22/24 22:50: Troponin I High Sens 98 H 06/22/24 23:05: Troponin I High Sens 97 H Imaging Radiology Impression Chest X-Ray 06/22/24 21:02 IMPRESSION: Stable chest with no acute disease. Electronically Signed: Willie Wilson MD at 21:23 EST , Chest CTA 06/22/24 23:04 IMPRESSION: Bibasilar thick linear atelectasis versus scarring. Otherwise, no significant acute abnormality of the chest identified. Distal pulmonary artery branch vessel evaluation is suboptimal secondary to timing of contrast bolus as well as respiratory motion, however, there is no obvious proximal pulmonary embolus. No acute thoracic aortic abnormality. Fatty liver. Pulmonary nodules. Recommend comparison with previous imaging to document long-term stability versus follow-up evaluation as per Fleischner guidelines as neoplastic process is not excluded. Electronically Signed: Willie Wilson MD at 1:55 EST , Assessment & Plan Assessment/Plan (1) Elevated troponin: (2) Anterior chest wall pain: PLAN: Plan The patient is a 59 y/o M w/ PMHx: Anxiety and Depression, GERD, Asthma, OA who presents to the [facility] ED on 06/23/24 with history of recent RTK replacement surgery approximately 3-4 weeks prior with onset of lower abdominal discomfort, chest discomfort and bilateral leg pain with PCP evaluation and treatment with pain regimen as well as muscle relaxers however his pain worsened on the evening of presentation prompting eventual ED evaluation to be cautious. #1. Chest pain with indeterminate cardiac enzyme, of unclear significance in addition to atypical BL upper thigh->lower BL abdominal pain: EKG in ED with SR without acute evidence of ischemia, CXR w/ no acute cardiopulmonary findings, CTPA with no acute findings, initial trop 112-> 98/97. Will maintain on a monitored bed to assure no acute myocardial infarction with serial cardiac enzymes and EKGs. Magnesium level requested. FLP in AM. Although CTPA without PE ill timed bolus thus to be cautious in case VTE related will obtain BL LE duplex US. UA also in case related with UTI as reports recent increased urinary frequency. Also requesting cardiac stress testing. ASA, NG, morphine. #2. Incidental pulmonary nodules: CTPA with evidence of pulmonary nodules, will need follow-up imaging/evaluation further outpatient. #3. Elevated BP without hypertensive diagnosis: Admission BP in the ED elevated above goal, likely pain related, will continue to monitor and add oral regimen if appropriate, as needed IV hydralazine in the interim. #4. Recent Cough, congestion, URI type symptoms w/ Suspected Acute Viral Syndrome: Will obtain full respiratory viral panel, encourage HOB, IS, conservative interventions. #5. OA: Status post R TKR, surgery approximately 3 weeks prior, CTPA without evidence of acute PE, continue parameters per discharge recently, encourage continued follow-up outpatient with Orthopedic surgery. #6. Chronic asthma: Will hold home inhalers in the interim transition to ATC budesonide therapy, PRN albuterol, HOB, IS parameters. #7. Anxiety and depression: Per current list does not appear to be on regimen, encourage continued outpatient follow-up with PCP and monitoring as previously arranged. #8. GERD: Will maintain on PPI in case contributing. #9. DVT prophylaxis: Lovenox. #10. CODE status: Full Code. Charges/Coding Visit Charges Inpatient E&M: 31833 Init Hosp L3
--- NOTE | 2024-06-23 02:44 | VDLE_ITS ---
Reason For Study: PAIN RIGHT LEFT GSV is normal. GSV is normal. CFV is compressible, spontaneous, phasic, CFV is compressible, spontaneous, phasic, competent and demonstrates normal competent, and demonstrates normal augmentation. augmentation. FV is compressible, spontaneous, phasic, FV is compressible, spontaneous, phasic, competent and demonstrates normal competent and demonstrates normal augmentation. augmentation. POP V is compressible, spontaneous, phasic, POP V is compressible, spontaneous, phasic, competent and demonstrates normal competent and demonstrates normal augmentation. augmentation. T/P Trunk is compressible. T/P Trunk is compressible. PTV is compressible. PTV is compressible. RT PerV is compressible. LT PerV is compressible. NON-VASCULAR heterogenous structure noted in the RT POP FOSSA area measuring 3.84 cm x 2.2 cm in transverse. VL/Venous Duplex US - Kee Extrem Interpretation Summary Deep veins of the lower extremities are bilaterally patent and compressible seg mentally. There is no evidence of deep vein thrombosis on either side. Valvular competence appears in tact within the proximal deep venous systems bilaterally. The great saphenous veins appear bila terally patent and compressible segmentally. A non-vascular, heterogeneous structure is noted in t he right popliteal space, measuring 3.84 cm x 2.2 cm. This probably represents a popliteal cyst. C linical correlation is advised. Ordering Physician: Roxi Rea Referring Physician: Jennifer Lopez Performed By: Amita Roy, RDCS, RVT
[2024-06-23 03:07] LABS: Magnesium 1.7 mg/dL (1.6-2.6)
--- NOTE | 2024-06-23 03:25 | EKG12_ITS ---
Test Reason : CP ADMIT Blood Pressure : */* mmHG Vent. Rate : 105 BPM Atrial Rate : 105 BPM P-R Int : 158 ms QRS Dur : 92 ms QT Int : 334 ms P-R-T Axes : 25 -68 32 degrees QTcB Int : 441 ms Sinus tachycardia Pulmonary disease pattern Left anterior fascicular block Abnormal ECG When compared with ECG of 22-Jun-2024 21:13, MANUAL COMPARISON REQUIRED DATA IS UNCONFIRMED Confirmed by BERENICE FORRESTER, BECK ([id number]), clinical editor MARC LYNN ([id number]) on 06/27/2024 8:06:48 A M Referred By: Confirmed By: BECK NG MD
[2024-06-23] MEDS: Acetaminophen 325 MG Tablet 650 MG PO ×2 (03:54→12:14)
[2024-06-23] MEDS: Senna/Docusate Sodium 1 Tablet 2 TABLET PO (03:54)
[2024-06-23] MEDS: Aspirin 81 MG TAB.CHEW 324 MG PO (03:54)
[2024-06-23 03:55] LABS: Absolute Lymphocyte Count 1.33 X10^3/uL (0.83-4.51); Absolute Neutrophil Count 3.9 X10^3/uL (2.0-7.7); Basophil# 0.03 X10^3/uL; Basophil% 0.5 % (0-1); Eosinophil# 0.24 X10^3/uL; Eosinophils% 3.8 % (0-5); Hematocrit 40.4 % (40-54); Hemoglobin 13.3 g/dL (13.0-16.5); Lymphocyte # 1.33 X10^3/ul (0.83-4.51); Lymphocyte % 21.2 % (19-41); Mean Corp Hgb Conc 32.9 g/dL (32-36); Mean Corpuscular Hgb 28.8 pg (27.0-32.0); Mean Corpuscular Volume 87.4 fL (80-94); Mean Platelet Vol. 8.6 fl (6.2-12.0); Monocyte# 0.77 X10^3/uL; Monocyte% 12.3 % (0-10); NRBC Flagged by Analyzer 0 % (0-5); Neutrophil # 3.88 X10^3/uL (2.7-7.7); Neutrophil % 61.9 % (47-70); Platelet Count 327 K/mm3 (150-450); RBC Distribution Width SD 38.5 fl (35.1-43.9); Red Blood Count 4.62 M/mm3 (4.6-6.2); White Blood Count 6.3 K/mm3 (4.4-11.0)
[2024-06-23] MEDS: traMADol 50 MG Tablet PO ×2 (03:55→12:14)
[2024-06-23 04:09] LABS: Bacteria 0 SEEN /hpf (None Seen); Mucous, Urine 0 SEEN /hpf (<or=2+); Red Blood Cells-Urine 0 SEEN /hpf (0-5); Squamous Epithelial Cells - UA 0 SEEN /hpf (0-5); White Blood Cells 0 SEEN /hpf (0-5)
[2024-06-23 04:11] LABS: Color, Urine Yellow (Yellow); Glucose, Dipstick Normal (Normal); Ketone-Dipstick 50 mg/dl (Negative); Leukocyte Esterase-Dipstick Negative /ul (Negative); Nitrite-Dipstick Negative (Negative); Occult Blood-Urine Negative /ul (Negative); Protein-Dipstick Negative (Negative); Specific Gravity, Urine 1.015 (1.002-1.030); Urine Bilirubin Dipstick Negative (Negative); Urine Clarity Clear (Clear); Urine Urobilinogen Normal (Normal)
[2024-06-23 04:14] LABS: Troponin-I HS 101 pg/mL (3.0-78.0)
[2024-06-23 04:42] LABS: ALB/GLOB Ratio 0.8 RATIO (0.9-2.4); AST(SGOT) 13 U/L (15-37); Alanine Aminotransfer ALT/SGPT 32 U/L (16-61); Albumin, Serum 3.4 g/dL (3.2-5.0); Alkaline Phosphatase 60 U/L (45-117); Anion Gap 9 (5-15); BUN 16 mg/dL (7-18); BUN/Creat Ratio 16.2 RATIO (10-20); Calcium,Total 9.7 mg/dL (8.5-10.1); Chloride 100 mmol/L (98-107); Creatinine, Serum 0.99 mg/dL (0.70-1.30); EST Glomerular Filtration Rate 82 mL/min (>60); Est Glom Filt Rate - Afr Amer 100 mL/min (>60); Estimated Creatinine Clearance 92.08 ml/min; Globulin 4.3 g/dL (2.2-4.2); Glucose 110 mg/dL (74-106); Potassium 3.8 mmol/L (3.5-5.1); Protein, Total 7.7 g/dL (6.4-8.2); Sodium Level 135 mmol/L (136-145)
[2024-06-23] MEDS: Budesonide Respules 0.5 MG/2 ML AMPUL.NEB. INHALATION (07:19)
--- NOTE | 2024-06-23 13:00 | STRESSREP ---
Stress Test Report Date: 06/23/2024 Procedure: Pharmacologic stress nuclear imaging study Indications: Chest pain Consent: Per the patient Procedure: The patient underwent pharmacologic (Regadenoson) evaluation with a peak heart rate of 133 beats per minute (83%predicted maximal heart rate) and a peak blood pressure of 128/102 mmHg. The baseline ECG demonstrated normal sinus rhythm, poor R wave progression in the anterior leads. EKG during lexiscan infusion revealed no significant ischemic changes. EKG post infusion revealed no significant ischemic changes [There were no cardiac dysrhythmias pretest, during pharmacologic infusion, or recovery]. [There was no complaint of chest discomfort during pharmacologic infusion or recovery]. The examination was discontinued secondary to completion of protocol. Impression: 1. Lexiscan stress test test is negative for Lexiscan infusion induced EKG changes of ischemia. 2. Lexiscan stress test test is negative for Lexiscan infusion induced chest pain. 3. Results of the nuclear portion of the test is as below Myocardial perfusion imaging study: Technique: The patient was injected with 10.8 millicuries of technetium 99m Cardiolite and subsequently rest SPECT Cardiolite nuclear imaging was obtained in the horizontal long, vertical long, and short axis views. The patient underwent pharmacologic [Regadenoson 0.4mg] evaluation. Please see above for details. The patient was injected with 34.6 millicuries of technetium 99m Cardiolite and subsequently stress SPECT Cardiolite nuclear imaging was obtained in the horizontal long, vertical long, and short axis views. A gated Cardiolite study at peak stress was obtained. Interpretation: Rest and stress SPECT Cardiolite nuclear imaging status post realignment, normalization, and attenuation correction demonstrate significant motion artifact. There is also extracardiac uptake adjacent to the inferior wall. Prior to attenuation correction there is decreased radioisotope uptake in the inferior wall on both the rest and stress images. There is improvement in the uptake after attenuation correction. Gated images reveal basal inferior hypokinesis which could be artifactual. The reported LVEF is 64%. Differential diagnosis for the basal inferior findings include old myocardial infarction versus artifact. Impression: 1. There is no evidence of significant ischemia. 2. Estimated ejection fraction is 64%. This note was generated with Log[employer]ation software. It may contain incorrect words, spelling, and punctuation that were not noted in checking the note before signing.
--- NOTE | 2024-06-23 15:04 | PCM.DC ---
Discharge Instructions Diet Discharge Diet: No restrictions Activity Discharge Activity: Return to Normal Activity Dressing / Incision Call your doctor if you observe: Fever of 101 or Higher, Shortness of breath, Dizziness, Fainting spells, Swelling in the ankles, Chest pain and Increased palpitations (irregular heartbeat) Follow Up Care Test Results: Test results from this visit will be discussed in further detail at your follow-up appointment, if applicable. Discharge Plan Admission Admit Date/Time: 06/23/24 02:40 Attending Provider: Hay Lloyd Primary Care Provider: Jennifer Lopez Consulting Providers: Roxi Rea Discharge Orders/Prescriptions Prescriptions: Continued albuterol sulfate 90 mcg/actuation HFA aerosol inhaler 2 puff inhalation Q6H PRN (Reason: shortness of breath or wheezing) Qty: 6.7 0RF budesonide-formoterol [Symbicort] 160-4.5 mcg/actuation HFA aerosol inhaler 2 puff inhalation Q12H omeprazole 40 mg capsule,delayed release(DR/EC) 40 mg PO DAILY tramadol 50 mg tablet 50 mg PO Q6H PRN PRN (Reason: pain) cyclobenzaprine 5 mg tablet 5 mg PO DAILY tadalafil 5 mg tablet 5 mg PO DAILY aspirin 81 mg tablet,delayed release (DR/EC) 81 mg PO Q12H acetaminophen 500 mg tablet 500 mg PO Q6H PRN (Reason: fever or pain) oxycodone 5 mg tablet 5 mg PO Q6H PRN (Reason: pain) Referrals / Follow Up: Jennifer Lopez MD [Primary Care Provider] - Within 1 Week Zhane Ramirez NP, [employer] ASSIST[facility] [Med Staff - Adv Practice Prof] - Within 1 Month (Will need PFTs and may need autoimmune work-up) Disposition Disposition (needs filled in before D/C Order can be placed): Home, Self Care
--- NOTE | 2024-06-23 15:07 | PCM.DC.SUM ---
Providers Date of Admission: 06/23/24 Primary Care Physician: Dr. Jennifer Lopez MD Reason For Visit: CHEST PAIN Diagnosis Discharge Diagnosis (1) Elevated troponin: Status: Acute Code(s): R79.89 - Other specified abnormal findings of blood chemistry (2) Anterior chest wall pain: Status: Acute Code(s): R07.89 - Other chest pain Medications at Discharge Home Medications albuterol sulfate 90 mcg/actuation aerosol inhaler 2 puff inhalation Q6H PRN shortness of breath or wheezing #6.7 grams 05/08/23 acetaminophen 500 mg tablet 500 mg PO Q6H PRN fever or pain 06/22/24 aspirin 81 mg tablet,delayed release 81 mg PO Q12H 06/22/24 budesonide-formoterol HFA 160 mcg-4.5 mcg/actuation aerosol inhaler (Symbicort) 2 puff inhalation Q12H 06/22/24 cyclobenzaprine 5 mg tablet 5 mg PO DAILY 06/22/24 omeprazole 40 mg capsule,delayed release 40 mg PO DAILY 06/22/24 oxycodone 5 mg tablet 5 mg PO Q6H PRN pain 06/22/24 tadalafil 5 mg tablet 5 mg PO DAILY 06/22/24 tramadol 50 mg tablet 50 mg PO Q6H PRN PRN pain 06/22/24 Hospital Course Operations None Procedures Stress test Summary of Care Provided Minutes Spent on Discharge: 40 Hospital Course: Per HPI: The patient is a 59 y/o M w/ PMHx: Anxiety and Depression, GERD, Asthma, OA who presents to the [facility] ED on 06/23/24 with history of recent RTK replacement surgery approximately 3-4 weeks prior with onset of lower abdominal discomfort, chest discomfort and bilateral leg pain with PCP evaluation and treatment with pain regimen as well as muscle relaxers however his pain worsened on the evening of presentation prompting eventual ED evaluation to be cautious. He reports the chest and lower abdominal/pelvic discomfort is more positional and intermittent starting initially on Wednesday with separate episodes since with associated dyspnea as well as recent mild productive cough. Chest discomfort and lower abdominal discomfort as well as upper leg more of an aching, constant discomfort. He denies any recent fevers or chills. He does report some diaphoresis when he has episodes of chest discomfort. He denies any significant lower extremity swelling following his recent intervention. He does report recent increased urinary frequency but no dysuria or foul smelling urine. Workup in the ED included T97.4, heart rate 109, BP 149/88, respiratory rate 20, 96% on room air, CBC with WBC 7.8, human 13.5, platelet 323 without marked shift, BMP with sodium 135 otherwise unremarkable, initial troponin 112 with repeat delta troponin 98 and for some reason a repeat troponin shortly following this 97, chest x-ray with no acute cardiopulmonary findings, D-dimer 2.69, CTPA with bibasilar thick linear atelectasis versus scarring otherwise no significant acute abnormality of the chest identified, distal pulmonary artery branch vessel evaluation suboptimal secondary to timing of contrast bolus as well as respiratory motion however there is no obvious proximal pulmonary embolus, no acute aortic thoracic abnormality, fatty liver, evidence of pulmonary nodules with recommended follow-up comparison evaluation outpatient, EKG with SR without acute evidence of ischemia. Hospital Course: 1. Chest pain rule out?59-year-old male present to the hospital with left-sided pleuritic chest pain that is worse with deep breathing but does not notice any significant chest pain with activity. 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 On admission to the hospital he did have a slightly elevated troponin but it was indeterminant as it would fluctuate around 100. He did have an elevated D-dimer and CTA of the chest was unremarkable for PE. He does have 2 pulmonary nodules which he was notified about and he will need outpatient follow-up with repeat imaging in 6 to 9 months. He did have a stress test and the stress test was negative for any type of ischemic changes. He does also talk about achy joint pain especially in his groin and hips as well as down both legs. He did have a recent arthroscope of his right knee however in discussing with him he does have a family history of lupus as well as rheumatoid arthritis so it may be beneficial to have him follow-up with pulmonology as an outpatient for PFTs to evaluate his asthma control as well as monitoring of these nodules and potentially autoimmune workup as an outpatient if has not been done prior. I discussed with him the plan for discharge today he expressed understanding of the risk benefits going home and would prefer to go home today. He did have venous duplexes done however these have not been read yet, he is not complaining of leg swelling or pain. Physical Exam Narrative General: Alert, Oriented x3, Cooperative, No apparent distress HEENT: Atraumatic, PERRLA, EOMI, Normocephalic Oral: Moist Mucosa Neck: Supple, No JVD Lungs: Clear to auscultation, Normal air movement, No rhonchi, No wheeze, No rales Cardiovascular: Regular rate, Regular Rhythm, Normal S1, Normal S2, No murmurs Abdomen: Soft, Non Tender, Non-Distended, No Hepato-splenomegaly Extremities: No edema, Capillary Refill Less than 3 Seconds Skin: No rashes, No breakdown Musculoskeletal: No Tenderness to Palpation of Joints or Extremities Neurological: No focal neurological deficits, Motor Exam 5/5 strength throughout, Sensory exam intact to light touch and pain Psych/Mental Status: Normal Affect, Appropriate Weight / BMI Weight Weight: 210 lb 12.191 oz Body Mass Index (BMI) 30.2 ABG / Lab / Microbiology Data 06/23/24 03:45 06/23/24 03:45 Laboratory: Laboratory Results - last 24 hr 06/22/24 20:40: WBC 7.8, RBC 4.67, Hgb 13.5, Hct 40.3, MCV 86.3, MCH 28.9, MCHC 33.5, RDW Std Deviation 37.5, RDW Coeff of [place] 11.9, Plt Count 323, MPV 8.6, Immature Gran % (Auto) 0.400, Neut % (Auto) 62.0, Lymph % (Auto) 22.7, [place] % (Auto) 10.8 H, Eos % (Auto) 3.5, Baso % (Auto) 0.6, Absolute Neuts (auto) 4.8, Absolute Lymphs (auto) 1.76, Nucleated RBC % 0, Sodium 135 L, Potassium 4.0, Chloride 100, Carbon Dioxide 28.0, Anion Gap 7, BUN 18, Creatinine 0.98, Estim Creat Clear Calc 92.99, Est GFR (MDRD) Af Amer 101, Est GFR (MDRD) Non-Af 83, BUN/Creatinine Ratio 18.4, Glucose 106, Calcium 9.8, Troponin I High Sens 112 H 06/22/24 20:43: D-Dimer Quant (PE/DVT) 2.69 H* 06/22/24 21:38: Lactic Acid 1.3 06/22/24 22:50: Magnesium 1.7, Troponin I High Sens 98 H 06/22/24 23:05: Troponin I High Sens 97 H 06/23/24 03:45: WBC 6.3, RBC 4.62, Hgb 13.3, Hct 40.4, MCV 87.4, MCH 28.8, MCHC 32.9, RDW Std Deviation 38.5, RDW Coeff of [place] 12.0, Plt Count 327, MPV 8.6, Immature Gran % (Auto) 0.300, Neut % (Auto) 61.9, Lymph % (Auto) 21.2, [place] % (Auto) 12.3 H, Eos % (Auto) 3.8, Baso % (Auto) 0.5, Absolute Neuts (auto) 3.9, Absolute Lymphs (auto) 1.33, Nucleated RBC % 0, Sodium 135 L, Potassium 3.8, Chloride 100, Carbon Dioxide 27.0, Anion Gap 9, BUN 16, Creatinine 0.99, Estim Creat Clear Calc 92.08, Est GFR (MDRD) Af Amer 100, Est GFR (MDRD) Non-Af 82, BUN/Creatinine Ratio 16.2, Glucose 110 H, Calcium 9.7, Total Bilirubin 0.60, AST 13 L, ALT 32, Alkaline Phosphatase 60, Troponin I High Sens 101 H, Total Protein 7.7, Albumin 3.4, Globulin 4.3 H, Albumin/Globulin Ratio 0.8 L 06/23/24 04:01: Urine Color Yellow, Urine Clarity Clear, Urine pH 6.0, Ur Specific [place] 1.015, Urine Protein Negative, Urine Glucose (UA) Normal, Urine Ketones 50 H, Urine Occult Blood Negative, Urine Nitrite Negative, Urine Bilirubin Negative, Urine Urobilinogen Normal, Ur Leukocyte Esterase Negative, Urine RBC 0 SEEN, Urine WBC 0 SEEN, Ur Squamous Epith Cells 0 SEEN, Urine Bacteria 0 SEEN, Urine Mucus 0 SEEN Microbiology: Microbiology 06/23/24 04:05 Mucosa - Nasopharyngeal Respiratory Panel (PCR) - Final Radiography Diagnostic Testing: Radiology Impression Chest X-Ray 06/22/24 21:02 IMPRESSION: Stable chest with no acute disease. Electronically Signed: Willie Wilson MD at 21:23 EST , Chest CTA 06/22/24 23:04 IMPRESSION: Bibasilar thick linear atelectasis versus scarring. Otherwise, no significant acute abnormality of the chest identified. Distal pulmonary artery branch vessel evaluation is suboptimal secondary to timing of contrast bolus as well as respiratory motion, however, there is no obvious proximal pulmonary embolus. No acute thoracic aortic abnormality. Fatty liver. Pulmonary nodules. Recommend comparison with previous imaging to document long-term stability versus follow-up evaluation as per Fleischner guidelines as neoplastic process is not excluded. Electronically Signed: Willie Wilson MD at 1:55 EST , D/C Instructions Discharge Diet: No restrictions Call your doctor if you observe: Fever of 101 or Higher, Shortness of breath, Dizziness, Fainting spells, Swelling in the ankles, Chest pain and Increased palpitations (irregular heartbeat) Meaningful Use Info Meaningful Use Meaningful Use Diagnoses (Choose all that apply): None applicable Ischemic Stroke Statin Dosing Therapy Reference: STATIN DOSE THERAPY REFERENCE: * Patients > 75 years receive moderate or high dose statin therapy. * Patients 75 years or YOUNGER should receive HIGH intensity statin dose unless contraindicated. You will be required to document reason for non-treatment if statin daily dose does not meet guidelines. HIGH DOSE STATIN THERAPY DAILY Atorvastatin > than or = to 40 mg Rosuvastatin > than or = to 20 mg Amlodipine + Atorvastatin > than or = to 2.5/40 mg Ezetimibe + Simvastatin 10/80 mg Simvastatin 80mg Discharge Plan Admission Admit Date/Time: 06/23/24 02:40 Attending Provider: Hya Lloyd Primary Care Provider: Jennifer Lopez Consulting Providers: Roxi Rae Discharge Orders/Prescriptions Prescriptions: Continued albuterol sulfate 90 mcg/actuation HFA aerosol inhaler 2 puff inhalation Q6H PRN (Reason: shortness of breath or wheezing) Qty: 6.7 0RF budesonide-formoterol [Symbicort] 160-4.5 mcg/actuation HFA aerosol inhaler 2 puff inhalation Q12H omeprazole 40 mg capsule,delayed release(DR/EC) 40 mg PO DAILY tramadol 50 mg tablet 50 mg PO Q6H PRN PRN (Reason: pain) cyclobenzaprine 5 mg tablet 5 mg PO DAILY tadalafil 5 mg tablet 5 mg PO DAILY aspirin 81 mg tablet,delayed release (DR/EC) 81 mg PO Q12H acetaminophen 500 mg tablet 500 mg PO Q6H PRN (Reason: fever or pain) oxycodone 5 mg tablet 5 mg PO Q6H PRN (Reason: pain) Referrals / Follow Up: Jennifer Lopez MD [Primary Care Provider] - Within 1 Week Zhane Ramirez NP, PHARMACY SCHEDULER-C [Med Staff - Adv Practice Prof] - Within 1 Month (Will need PFTs and may need autoimmune work-up) Disposition Disposition (needs filled in before D/C Order can be placed): Home, Self Care Charges/Coding Visit Charges Inpatient E&M: 92305 Disch Hosp >30min
== END 2024-06-23 15:07 | disposition home or self-care (01) ==
LOC: ED 23:26 → PCU 06-23 03:44
PROVIDERS: Admitting Provider Family Medicine; Emergency Provider Emergency Medicine; PCP Family Medicine; Visit Provider Family Medicine
DX: R07.89 Other chest pain (principal); J44.89 Other specified chronic obstructive pulmonary disease; M79.605 Pain in left leg; Z82.49 Family history of ischemic heart disease and other diseases of the circulatory system; K21.9 Gastro-esophageal reflux disease without esophagitis; R35.0 Frequency of micturition; R79.89 Other specified abnormal findings of blood chemistry; R07.81 Pleurodynia; Z79.51 Long term (current) use of inhaled steroids; R06.02 Shortness of breath; Z79.82 Long term (current) use of aspirin; Z79.899 Other long term (current) drug therapy; K40.30 Unilateral inguinal hernia, with obstruction, without gangrene, not specified as recurrent; R91.8 Other nonspecific abnormal finding of lung field; R03.0 Elevated blood-pressure reading, without diagnosis of hypertension; M19.90 Unspecified osteoarthritis, unspecified site
CPT/HCPCS: 36415; 71045; 71275; 78452; 80048; 80053; 81001; 83605; 83735; 84484; 85025; 85379; 87633; 93005; 93017; 93970; 94640; 94668; 99221; 99285; A9500; A4216; G0378; J2785

== ENCOUNTER 2024-07-07 10:00 | Outpatient (RCR) | payer OTHER, SELFPAY ==
--- NOTE | 2024-07-07 10:32 | HP.PTDCSUM_ITS ---
Discharge Summary D/C summary: It has been my pleasure to treat PAULO RAMIRES referred by Dr. Raj Deal DO, with the diagnosis of R TKA 05/22/24 for a total of 11 visit(s). Discharge Date: Please see the following information for a summary of their discharge status. Subjective Subjective: Minor pain today Pain R TKA: Pain Intensity (Out of 10): 2 Overall Improvement % Improvement: 50 Objective Objective/Function: R knee pain ranges 2/10-5/10 R knee ROM: 0-10-118 degrees R knee MMT: flex= 27, ext= 32 #F Pt is I with HEP Goals Goal 1:: Pt will decrease pain by 50% to aid with sleep. Goal Progress: Goal Met Goal 2:: Pt will be I with a HEP. Goal Progress: Goal Met Goal 3:: Pt will complete a TUG in under 10 sec to aid with community ambulatio n. Goal 4:: Pt will increase R knee strength to within 90% of L knee to aid with work activities. Goal Progress: Goal Met Goal 5:: Pt will increase R knee ROM to within 90% of L knee to aid with stair negotiation. Goal Progress: Goal Met Plan Plan: Discharge to HEP D/C Information d/c sentence: If there are questions or concerns regarding this patient's physical therapy, please feel free to call me at [phone]. Thank you for the referral of this patient. Sincerely, Vazquez Reyes, PT, ATC Balance/Gait/Functional tests Balance/Special Test Scores Lower Extremity Functional Score: 46 WOMAC Total Score: 77 WOMAC Percentage: 19.8000 Improvement % Improvement: 50
== END 2024-07-07 10:40 | disposition home or self-care (01) ==
LOC: PT 10:00
PROVIDERS: PCP Family Medicine; Referring Provider Orthopaedic Surgery; Visit Provider Orthopaedic Surgery
DX: Z96.651 Presence of right artificial knee joint (principal); M17.11 Unilateral primary osteoarthritis, right knee; Z47.1 Aftercare following joint replacement surgery
CPT/HCPCS: 97110; 97161; 97530

== ENCOUNTER → 2024-07-17 | Outpatient (CLI) | payer OTHER, SELFPAY ==
[2024-07-17 16:50] LABS: PSA,Total- Diagnostic 3.35 ng/mL (0.0-4.0)
== END | disposition home or self-care (01) ==
LOC: LAB 15:52
PROVIDERS: PCP Family Medicine; Referring Provider Urology; Visit Provider Urology
DX: N40.1 Benign prostatic hyperplasia with lower urinary tract symptoms (principal)
CPT/HCPCS: 36415; 84153

== ENCOUNTER 2024-08-07 06:01 | Day surgery (SDC) | payer OTHER, SELFPAY ==
--- NOTE | 2024-07-24 13:38 | PAT.ANESEVAL ---
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 When Was Last Pacemaker Check QUESTION #4 FULL TEXT: You/Your Family Experience fever (hyperthermia) with Anesthesia Last Oral Intake Last Oral intake: Last Oral Intake NPO since Meds taken in AM with sips of water? 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 Has anyone observed you stop No 07/24/24 10:14 breathing during sleep? STOP Results Negative 07/24/24 10:14 QUESTION #5 FULL TEXT : Do you snore loudly (louder than talking or can be heard through closed doors)? 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 Specify any problems Hx of Preganancy in last 3 N/A 07/24/24 10:14 Months Nurse Filling Out Transfusion VCHRISTIN 07/24/24 10:14 & Questions: Date: 07/24/24 07/24/24 10:14 Time: 10:15 07/24/24 10:14 Patient unable to answer at this time (ie. 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: /Reproductive Hx- canal equipment maintenance supervisor Hx Now Gestational Age (in weeks): EDC: Hx Hx Para Hx Section SAB PFSH Medical History (Updated 07/24/24 @ 10:14 by Malu Madsen) Anxiety Alcohol use Back pain History of diverticulitis Gastric reflux Non-smoker GERD (gastroesophageal reflux disease) Depression with anxiety Arthritis Inguinal hernia of left side without obstruction or gangrene Fracture of coccyx Partial tear of left rotator cuff Asthma Home Medications ?Medication ?Instructions ?Recorded ?Last Taken ?Type albuterol sulfate 90 mcg/actuation 2 puff inhalation Q6H PRN 05/08/23 Unknown Rx aerosol inhaler shortness of breath or wheezing #6.7 grams acetaminophen 500 mg tablet 500 mg PO Q6H PRN fever or pain 06/22/24 Unknown History budesonide-formoterol HFA 160 2 puff inhalation Q12H 06/22/24 Unknown History mcg-4.5 mcg/actuation aerosol inhaler (Symbicort) omeprazole 40 mg capsule,delayed 40 mg PO DAILY 06/22/24 Unknown History release tadalafil 5 mg tablet 5 mg PO DAILY 06/22/24 Unknown History Allergy/AdvReac Type Severity Reaction Status Date / Time No Known Allergies Allergy Verified 07/24/24 10:04 Family History Father Myocardial infarction Mother Asthma Arthritis Surgical History (Updated 07/24/24 @ 10:14 by Malu Madsen) History of right knee joint replacement History of left knee replacement H/O rotator cuff surgery Social History household members: spouse housing: house Smoking Status: Never smoker alcohol intake: current alcohol intake frequency: a few times a week Alcohol type: beer substance use type: does not use Audit: Pertinent Findings Pertinent Findings EKG Perinent findings: s tach lafb rate 105 06/23/24 Stress test pertinent findings: 07/02 neg ef 64 Recommendation Anesthesia Recommendation Anesthesia recommendation: OPTIMIZED for anesthesia
[2024-08-07] VITALS (10 sets, daily range): BP systolic 131–164; BP diastolic 95–103; PULSE 89–107; RESP 14–18; TEMP 36.2–36.6; O2SAT 88–98; BMI 30.9
[2024-08-07] MEDS: 0.9% Normal Saline (1000mL) 1,000 ML 15 ML IV (06:34)
--- NOTE | 2024-08-07 06:54 | PCM.PRE.AN2 ---
ASA Classification* ASA Classification ASA Classification: 3 Assessment & Plan Anesthesia* Anesthesia Assessment Anesthesia Assessment: Discussed sedation and/or anesthesia options, risks, benefits, and alternatives with patient/parents/legal guardian/POA. Questions invited. The patient/parents/legal guardian/POA seems to understand and agrees to proceed with anesthesia plan. Reviewed the physical assessment, medical history, allergy history and patient home medications list prior to surgery/procedure/anesthetic and documented any changes. Performed airway and anesthesia risk assessments. Anesthesia Type Anesthesia Type: General History Source History Obtained from:: Patient and Chart Anesthesia Focused Assessment* Temperature: 97.8 F Pulse Rate: 107 Blood Pressure: 131/97 Respiratory Rate: 16 Pulse Ox: 94 Oxygen Delivery Method: Room Air Airway Assessment Mouth opens: 2 cm Mallampati Score: III Teeth Condition: Caps/Crowns (2 implants upper. They are tight) Neck Range of motion (ROM): Limited ROM Focused Labs Anesthesia Preop lab: CBC WBC 6.3 K/mm3 (4.4-11.0) 06/23/24 03:45 RBC 4.62 M/mm3 (4.6-6.2) 06/23/24 03:45 Hgb 13.3 g/dL (13.0-16.5) 06/23/24 03:45 Hct 40.4 % (40-54) 06/23/24 03:45 Plt Count 327 K/mm3 (150-450) 06/23/24 03:45 CHEMISTRY Potassium 3.8 mmol/L (3.5-5.1) 06/23/24 03:45 Sodium 135 mmol/L (136-145) L 06/23/24 03:45 Magnesium 1.7 mg/dL (1.6-2.6) 06/22/24 22:50 BUN 16 mg/dL (7-18) 06/23/24 03:45 Creatinine 0.99 mg/dL (0.70-1.30) 06/23/24 03:45 Glucose 110 mg/dL (74-106) H 06/23/24 03:45 TSH 2.25 uIU/mL (0.358-3.74) 07/22/15 12:16 COAG Pre-Assessment Diagnosis/Proposed Procedure Planned Operative Procedure(s): (L) Lap Robotic Inguinal Hernia w/mesh poss bilateral Anesthesia History 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 When Was Last Pacemaker Check QUESTION #4 FULL TEXT: You/Your Family Experience fever (hyperthermia) with Anesthesia Last Oral Intake Last Oral intake: Last Oral Intake NPO since 23:00 08/07/24 06:28 Meds taken in AM with sips of Yes 08/07/24 06:28 water? 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 - airplane designer: PONV - airplane designer Female No 07/24/24 10:14 HX of Motion Sickness No 07/24/24 10:14 HX of N/V After Surgery No 07/24/24 10:14 Non-Smoker Yes 07/24/24 10:14 Duration of Surgery greater Yes 07/24/24 10:14 than 60 minutes Number of Risk Factors 2 07/24/24 10:14 PONV Score Moderate Risk 07/24/24 10:14 Height & Weight Height & Weight: Anesthesia: Height & Weight Height 5 ft 10 in 08/07/24 06:28 Weight: 98 kg 08/07/24 06:28 Body Mass Index (BMI) 30.9 08/07/24 06:28 Respiratory Assessment Respiratory Assessment - airplane designer: Respiratory Tract Infection Hx - airplane designer Hx Respiratory Tract Infection No 07/24/24 10:14 STOP Sleep Apnea STOP Sleep Apnea - airplane designer: STOP Sleep Apnea - airplane designer Hx Hypertension No 07/24/24 10:14 Hx Sleep Apnea No 07/24/24 10:14 CPAP No 07/24/24 10:14 BIPAP No 07/24/24 10:14 Do you snore loudly (louder No 07/24/24 10:14 than talking or can be heard Do you often feel tired/ No 07/24/24 10:14 fatigued/ sleepy during daytime? Has anyone observed you stop No 07/24/24 10:14 breathing during sleep? STOP Results Negative 07/24/24 10:14 QUESTION #5 FULL TEXT : Do you snore loudly (louder than talking or can be heard through closed doors)? 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 Specify any problems Hx of Preganancy in last 3 N/A 07/24/24 10:14 Months Nurse Filling Out Transfusion VCHRISTIN 07/24/24 10:14 & Questions: Date: 07/24/24 07/24/24 10:14 Time: 10:15 07/24/24 10:14 Patient unable to answer at this time (ie. confused, unrespo /Reproduction History /Reproductive History - airplane designer: /Reproductive Hx- airplane designer Hx Now Gestational Age (in weeks): EDC: Hx Hx Para Hx Section SAB Active Medications Active Medications: Current Medications Generic Name Dose Route Start Last Admin Trade Name Freq PRN Reason Stop Dose Admin Cefazolin Sodium 2 gm/ N/A 20 mls @ 400 mls/hr 08/07/24 07:30 IV 08/07/24 07:32 PREOP ONE Sodium Chloride 1,000 mls @ 15 mls/hr 08/07/24 06:10 08/07/24 06:34 IV 08/12/24 19:29 15 mls/hr .Q48H BOOM Administration Protocol PFSH Medical History Anxiety Alcohol use Back pain History of diverticulitis Gastric reflux Non-smoker GERD (gastroesophageal reflux disease) Depression with anxiety Arthritis Inguinal hernia of left side without obstruction or gangrene Fracture of coccyx Partial tear of left rotator cuff Asthma Home Medications ?Medication ?Instructions ?Recorded ?Last Taken ?Type albuterol sulfate 90 mcg/actuation 2 puff inhalation Q6H PRN 05/08/23 Unknown Rx aerosol inhaler shortness of breath or wheezing #6.7 grams acetaminophen 500 mg tablet 500 mg PO Q6H PRN fever or pain 06/22/24 Unknown History budesonide-formoterol HFA 160 2 puff inhalation Q12H 06/22/24 08/07/24 History mcg-4.5 mcg/actuation aerosol inhaler (Symbicort) omeprazole 40 mg capsule,delayed 40 mg PO DAILY 06/22/24 08/07/24 History release tadalafil 5 mg tablet 5 mg PO DAILY 06/22/24 Unknown History Allergy/AdvReac Type Severity Reaction Status Date / Time No Known Allergies Allergy Verified 08/07/24 06:27 Family History Father Myocardial infarction Mother Asthma Arthritis Surgical History History of right knee joint replacement History of left knee replacement H/O rotator cuff surgery Social History household members: spouse housing: house Smoking Status: Never smoker alcohol intake: current alcohol intake frequency: a few times a week Alcohol type: beer substance use type: does not use Review of Systems (Anesthesia) ROS Narrative System reviewed and no additional complaints, except as documented.
--- NOTE | 2024-08-07 07:12 | PCM.HP.BLA ---
History and Physical Date of Admission: 08/07/24 Intake Vital Signs 01/05/2413:19 06/23/2403:12 07/25/2413:02 Height 5 ft 11 in 5 ft 10 in 5 ft 11 in Weight: 219 lb 4 oz BMI 30.5 BP 139/79 H Blood Pressure Location Rt brachial Position Sitting Respiration 18 Pulse 102 H Pulse Source Monitor Pulse Oximetry (%) 96 Oxygen Delivery Method room air Intake Visit Reasons: H&P-HERNIA SURGERY Chief Complaint: left inguinal hernia Is patient in pain?: No Allergies No Known Allergies Allergy (Verified 07/25/24 13:03) Medications ?Medication ?Instructions ?Recorded ?Confirmed ?Type albuterol sulfate 90 mcg/actuation 2 puff inhalation Q6H PRN 05/08/23 07/25/24 Rx aerosol inhaler shortness of breath or wheezing #6.7 grams acetaminophen 500 mg tablet 500 mg PO Q6H PRN fever or pain 06/22/24 07/25/24 History budesonide-formoterol HFA 160 2 puff inhalation Q12H 06/22/24 07/25/24 History mcg-4.5 mcg/actuation aerosol inhaler (Symbicort) omeprazole 40 mg capsule,delayed 40 mg PO DAILY 06/22/24 07/25/24 History release tadalafil 5 mg tablet 5 mg PO DAILY 06/22/24 07/25/24 History PFSH Medical History Anxiety Alcohol use Back pain History of diverticulitis Gastric reflux Non-smoker GERD (gastroesophageal reflux disease) Depression with anxiety Arthritis Inguinal hernia of left side without obstruction or gangrene Fracture of coccyx Partial tear of left rotator cuff Asthma Surgical History History of right knee joint replacement History of left knee replacement H/O rotator cuff surgery Family History Father Myocardial infarctionMother Asthma Arthritis Social History household members: spouse housing: house Smoking Status: Never smoker alcohol intake: current alcohol intake frequency: a few times a week Alcohol type: beer substance use type: does not use HPI HPI HPI: Patient is a 59-year-old male here to discuss his inguinal hernia. He says it has grown larger since December. He also reports that he is umbilical hernia has grown larger as well and he would like that repaired. ROS General General: No weight change, appetite, fatigue, colon cancer, breast cancer or weakness HEENT HEENT: No difficulty swallowing, eye injury, eye surgery, swollen glands or hoarseness Endo Endocrine: No thyroid disease, diabetes mellitus, thyroid cancer, Hair loss, heat intolerance or cold intolerance Skin Skin: No rash or changing moles Musc Musculoskeletal: Yes arthritis; No back problems, rheumatoid arthritis, gout or joint pain Cardio Cardiovascular: No murmur, pacemaker, heart disease, atrial fibrillation, high blood pressure, heart attack, heart stent, palpitations, shortness of breat with exertion or chest pain Psych Psychiatric: Yes depression and anxiety; No hearing voices Resp Respiratory: No shortness of breath, No sleep apnea, No cough, No COPD, Yes asthma, No emphysema and No wheezing Gastro Gastrointestinal: Yes abdominal pain, No nausea or vomiting, No diarrhea, No constipation, No blood in stool, Yes acid reflux, No hemorrhoids, No ulcers, No gallbladder problem and No black,tarry stools Sam Hematologic: No blood thinners, No blood disorders, No bleeding, No anemia and No blood clots Neuro Neurologic: No system reviewed and no additional complaints, except as documented, No as per HPI, No abnormal gait, No abnormal hearing, No abnormal movements, No abnormal speech, No behavioral changes, No burning sensations, No confusion, No convulsions, No disequilibrium, No dizziness, No localized weakness, No frequent falls, No headache(s), No lack of coordination, No loss of vision, No memory loss, No numbness, No other visual disturbances, No radicular pain, No restless legs, No sensory deficit, No syncope, No tingling, No tremor(s), No weakness and No other Exam Const General: cooperative Orientation: alert and oriented x3 HENMT Head: normal to inspection Neck Neck: normal visual inspection and full ROM Chest Chest palpation & inspection: normal inspection of the chest Resp Effort & Inspection: normal respiratory effort Auscultation: clear to auscultation bilaterally Cardio Rate: regular rate Rhythm: regular rhythm GI Inspection: non-distended Palpation: soft, hernia indirect inguinal on the left and nontender Skin General: no rashes or lesions noted Neuro General: patient alert and patient oriented x3 Extrem General: full ROM Psych Appearance: grossly normal Mental Status: mental status grossly normal Assessment and Plan Assessment and Plan (1) Left inguinal hernia: Status: Acute Plan: Patient has a large left inguinal hernia which I was able to reduce with a lot of pressure. I discussed with him again robotic assisted laparoscopic left inguinal hernia repair with mesh. I went over all of the risks and benefits as well as the risk of bleeding, infection, injury other organs. Patient understands all the risks and is willing to proceed. He would also like me to fix his umbilical hernia at the same time which I will do his sutures through a separate incision. The patient also consents for repair of her right inguinal hernia if it is present. Willie Louise MD Pager: [facility] [address] [place] [address], [address] [place] [address] Office: I have examined the patient and the H&P has been reviewed. There are no clinical changes since date of exam.
[2024-08-07] MEDS: Cefazolin 2 GM in Syringe IV (07:31)
[2024-08-07] MEDS: Bupivacaine Mpf 0.5% 30 ML VIAL (08:55)
--- NOTE | 2024-08-07 09:13 | PCM.POST.ANE ---
Anesthesia: Postop Eval I Current Vital Signs Temperature: 97.2 F Pulse Rate: 91 Blood Pressure: 164/103 Respiratory Rate: 14 Pulse Ox: 97 Oxygen Delivery Method: Simple Mask Oxygen Flow Rate (L/min): 6 Assessment Airway patent: Yes Spontaneous unlabored respirations: Yes Mental status: Awake nausea: No Vomiting: No Anesthesia Complication: No Fluid Hydration Crystalloid volume administer (ml): 1,000 Total IV fluid infused: 1,000 Progress Note Anesthesia document: Postop Eval 1 completed: Yes
--- NOTE | 2024-08-07 09:19 | PCM.OPRPT ---
Operative Report (Standard) Operative Information Date of Procedure: 08/07/24 Pre-Operative Diagnosis: Left inguinal hernia and umbilical hernia Post-Operative Diagnosis: Same Surgery/Procedure Performed: 1. Robotic assisted laparoscopic left inguinal hernia repair with mesh 2. Umbilical hernia repair less than 3 cm wellfield technician: Yes Painting Instructor: Jayleen Jacobs Tasks completed by waiter/waitress first class: Closing and Trocar Type of Anesthesia: General/Regional RN Documented Start/Stop Times: Operation Date: 08/07/24 07:30 Case Time Into Pre-Op 08/07/24 06:06 Out of Pre-Op 08/07/24 07:22 Anesthesia Start 08/07/24 07:25 Into Room 08/07/24 07:25 Procedure Start 08/07/24 07:42 Procedure End 08/07/24 09:06 Anesthesia End 08/07/24 09:11 Out of Room 08/07/24 09:11 Into Recovery 08/07/24 09:13 Procedure Start Time: 07:42 Procedure Stop Time: 09:06 Select all DRAINS/GRAFTS/IMPLANTS that apply: Implanted device Implanted device details: ProGrip mesh in the left groin Estimated Blood Loss: 5 Specimen collected: No Description of surgery: Patient was brought back to the operating room and general anesthesia was induced. The abdomen was prepped and draped in usual sterile fashion. The umbilicus was too low to use at the port site so a port was planned for some more superior. Midline incision was made superior to the umbilicus and deepened to the fascia which was elevated and Veress needle was placed into the abdomen. A drop test was performed and then the abdomen was then filled inflated for to 15 mmHg. The Veress needle was removed and a port was placed. The camera was placed into the abdomen and there were no injuries from entry. Patient was placed in steep Trendelenburg position and the inguinal regions were inspected. The patient had a large left indirect hernia containing colon and he had no hernia on the right. Using direct visualization a port was placed on the right lateral abdomen as well as left lateral abdomen and then the robot was docked. Electrocautery scissors were used to make an incision in the peritoneum in the left lower quadrant. Dissection was carried inferiorly until the hernia sac was encountered. It was very tedious to dissected free as it was very stuck to all its adhesions and did contain colon and a sliding fashion. Once it was fully reduced and the lipoma was reduced a large piece of ProGrip was placed into the left groin and unfolded over the hernia defect completely covering it. Next the mesh was unfolded and put into place. Next the peritoneum was reapproximated in a running fashion using a 3 OV lock suture. The peritoneum completely covered the mesh. Next the ports were removed and the air was allowed to leave the abdomen. A curvilinear incision was marked superior to the umbilicus and then injected with local anesthetic. Incision was made with a scalpel and deepened to the fascia. The hernia was taken off of the umbilical stalk and reduced. The defect was very small and was closed with 2 interrupted 0 Nurolon sutures. The umbilical stalk was then sutured to the fascia using a 3-0 Vicryl suture. Next all of the incisions were closed with interrupted 4-0 Monocryl sutures and Steri-Strips and bandages. Patient tolerated the procedure well and was brought to PACU in stable condition. Scrotum was checked at the end of the case and continued both testicles. Surgical Findings: Small umbilical hernia and left inguinal hernia containing colon Complications Complications: No Admit VTE Documentation VTE Mechan Device Prophylaxis: SCD's
--- NOTE | 2024-08-07 09:25 | EX.PCM.DISCH ---
Discharge Instructions Procedure Hernia Diet Discharge Diet: Light diet - advance as tolerated Activity Discharge Activity: May Not Drive (for 2-3 days or while taking narcotic pain meds.) and May Shower (with the bandage in place 1-2 days after surgery.) Lifting Restrictions: 20 pounds for 4 weeks. Additional Activity Instructions:: Climbing stairs is fine, walking is encouraged. Sitting in bed may be uncomfortable. Sitting up using your lateral muscles (sitting up sideways) is usually more comfortable. Do not drive, work heavy equipment of sign legal documents for 24 hours. If your hernia repair was an inguinal repair, you may have scrotal swelling, an ice pack and/or athletic support can provide more comfort. Pain medications may cause nausea, you should typically eat light foods as you take your pain medications. Pain medications may also cause constipation. If you have difficulty with this, discuss with your doctor. Alternate Tylenol and ibuprofen for pain control, oxycodone for breakthrough pain. Dressing / Incision Call your doctor if your incision/area has: Continuous Slow Oozing, Sudden Increased Bleeding, Increased Pain/ Swelling, Increased Redness and Foul Smelling Discharge Call your doctor if you observe: Fever of 101 or Higher Suture Line Care: Avoid Pulling/Pushing and Avoid Pinching/Bending Remove Dressing in: 2 days (Remove clear bandages in 2 days, remove Steri-Strips in 7 to 10 days.) Cleanse incision/area with: Soap & Water Follow Up Care Please Follow Up With: Willie Louise MD When: Please call for 2 week follow up [phone] if not already made Test Results: Test results from this visit will be discussed in further detail at your follow-up appointment, if applicable. Discharge Plan Admission Attending Provider: Willie Louise Primary Care Provider: Jennifer Lopez Instructions Print Language: Senegalese Discharge Orders/Prescriptions Prescriptions: New oxycodone 5 mg Tablet 5 - 10 mg PO Q4H PRN PRN (Reason: Pain Score 4-10) 5 Days Qty: 10 0RF No Action albuterol sulfate 90 mcg/actuation HFA aerosol inhaler 2 puff inhalation Q6H PRN (Reason: shortness of breath or wheezing) Qty: 6.7 0RF budesonide-formoterol [Symbicort] 160-4.5 mcg/actuation HFA aerosol inhaler 2 puff inhalation Q12H omeprazole 40 mg capsule,delayed release(DR/EC) 40 mg PO DAILY tadalafil 5 mg tablet 5 mg PO DAILY acetaminophen 500 mg tablet 500 mg PO Q6H PRN (Reason: fever or pain) Referrals / Follow Up: Jennifer Lopez MD [Primary Care Provider] - Disposition Disposition (needs filled in before D/C Order can be placed): Home, Self Care
--- NOTE | 2024-08-07 09:40 | POSTOPAN2_ITS ---
Anesthesia Postop Eval I Sum Postop Eval Completion status Anesthesia document: Postop Eval 1 completed: Yes Anesthesia Postop Eval I Summary Anesthesia Postop Eval I Summary: Anesthesia Postop Eval I: Assessment Summary Airway patent Yes 08/07/24 09:16 SPECIFICATION CONSULTANT.[email or web address] Spontaneous unlabored Yes 08/07/24 09:16 SPECIFICATION CONSULTANT.HBARR respirations Mental status Awake 08/07/24 09:16 SPECIFICATION CONSULTANT.HBARR nausea No 08/07/24 09:16 SPECIFICATION CONSULTANT.HBARR Vomiting No 08/07/24 09:16 SPECIFICATION CONSULTANT.HBARR Anesthesia Postop Eval I: Fluid Summary Crystalloid volume administer 1,000 08/07/24 09:16 SPECIFICATION CONSULTANT.HBARR (ml) Colloids volume administered ( ml) Blood Product volume administered (ml) Total IV fluid infused 1,000 08/07/24 09:16 SPECIFICATION CONSULTANT.HBARR Anesthesia Postop Eval I: Summary Notes Anesthesia Complication No 08/07/24 09:16 SPECIFICATION CONSULTANT.HBARR Anesthesia Complication Comment: Post-operative progress note Anesthesia: Postop Eval II Evaluation Mental status: Awake and Calm Pain Level: 1 nausea: No Vomiting: No Complications Anesthesia Complication: No
--- NOTE | 2024-08-07 09:40 | PCM.POSTANE2 ---
Anesthesia Postop Eval I Sum Postop Eval Completion status Anesthesia document: Postop Eval 1 completed: Yes Anesthesia Postop Eval I Summary Anesthesia Postop Eval I Summary: Anesthesia Postop Eval I: Assessment Summary Airway patent Yes 08/07/24 09:16 LAND [email or web address].[email or web address] Spontaneous unlabored Yes 08/07/24 09:16 LAND [email or web address].HBARR respirations Mental status Awake 08/07/24 09:16 LAND [email or web address].HBARR nausea No 08/07/24 09:16 LAND [email or web address].HBARR Vomiting No 08/07/24 09:16 LAND [email or web address].HBARR Anesthesia Postop Eval I: Fluid Summary Crystalloid volume administer 1,000 08/07/24 09:16 LAND [email or web address].HBARR (ml) Colloids volume administered ( ml) Blood Product volume administered (ml) Total IV fluid infused 1,000 08/07/24 09:16 LAND [email or web address].HBARR Anesthesia Postop Eval I: Summary Notes Anesthesia Complication No 08/07/24 09:16 LAND [email or web address].HBARR Anesthesia Complication Comment: Post-operative progress note Anesthesia: Postop Eval II Evaluation Mental status: Awake and Calm Pain Level: 1 nausea: No Vomiting: No Complications Anesthesia Complication: No
[2024-08-07] MEDS: Acetaminophen 325 MG Tablet 650 MG PO (10:18)
== END 2024-08-07 11:08 | disposition home or self-care (01) ==
LOC: SDC 06:01 → AC 06:03
PROVIDERS: PCP Family Medicine; Referring Provider Surgery; Visit Provider Surgery
PROC: 0YQ64ZZ Repair Left Inguinal Region, Percutaneous Endoscopic Approach (ICD-10-PCS; CPT 49650; principal; 2024-08-07 07:10)
DX: K40.90 Unilateral inguinal hernia, without obstruction or gangrene, not specified as recurrent (principal); K42.9 Umbilical hernia without obstruction or gangrene; K21.9 Gastro-esophageal reflux disease without esophagitis; J45.909 Unspecified asthma, uncomplicated; F32.A Depression, unspecified; F41.9 Anxiety disorder, unspecified; Z79.51 Long term (current) use of inhaled steroids; Z79.899 Other long term (current) drug therapy
CPT/HCPCS: 49650; 49591; S2900; 00840; J2405

== ENCOUNTER 2024-11-02 08:24 | Day surgery (SDC) | payer OTHER, SELFPAY ==
--- NOTE | 2024-11-01 10:39 | PAT.ANE_ITS ---
Pre-Assessment Diagnosis/Proposed Procedure Planned Operative Procedure(s): CSCOPE OA Anesthesia History Anesthesia History - nurse orthopaedic: Anesthesia History - nurse orthopaedic Hx Hospitalization No 11/01/24 08:46 Any Problems With Anesthesia No 11/01/24 08:46 Cholinesterase deficiency No 11/01/24 08:46 You/Your Family Experience No 11/01/24 08:46 fever (hyperthermia) with Relationship Recent Exposure to Contagious No 08/07/24 06:28 Disease Does patient have nerve No 11/01/24 08:46 stimulator Patient instructed to have device shut off --Does patient have Pacemaker or ICD? When Was Last Pacemaker Check QUESTION #4 FULL TEXT: You/Your Family Experience fever (hyperthermia) with Anesthesia Last Oral Intake Last Oral intake: Last Oral Intake NPO since Meds taken in AM with sips of water? 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 - nurse orthopaedic: PONV - nurse orthopaedic Female No 11/01/24 08:46 HX of Motion Sickness No 11/01/24 08:46 HX of N/V After Surgery No 11/01/24 08:46 Non-Smoker Yes 11/01/24 08:46 Duration of Surgery greater No 11/01/24 08:46 than 60 minutes Number of Risk Factors 1 11/01/24 08:46 PONV Score Low Risk 11/01/24 08:46 Height & Weight Height & Weight: Anesthesia: Height & Weight Height 5 ft 11 in 09/04/24 08:30 Respiratory Assessment Respiratory Assessment - nurse orthopaedic: Respiratory Tract Infection Hx - nurse orthopaedic Hx Respiratory Tract Infection No 11/01/24 08:46 STOP Sleep Apnea STOP Sleep Apnea - nurse orthopaedic: STOP Sleep Apnea - nurse orthopaedic Hx Hypertension No 11/01/24 08:46 Hx Sleep Apnea No 11/01/24 08:46 CPAP No 11/01/24 08:46 BIPAP No 11/01/24 08:46 Do you snore loudly (louder No 11/01/24 08:46 than talking or can be heard Do you often feel tired/ No 11/01/24 08:46 fatigued/ sleepy during daytime? Has anyone observed you stop No 11/01/24 08:46 breathing during sleep? STOP Results Negative 11/01/24 08:46 QUESTION #5 FULL TEXT : Do you snore loudly (louder than talking or can be heard through closed doors)? Tobacco Use History Tobacco Use History - nurse orthopaedic: Tobacco Use History - nurse orthopaedic Tobacco Use Smoking Status Never smoker 11/01/24 08:46 Hx Tobacco Use No 11/01/24 08:46 Years Smoking Packs Smoked per Day Smoking Cessation Date was within the last 15 years Hx Smoking Cessation Date Hx Smoking Cessation Counseling Hematologic Medial History Hematologic Hx - nurse orthopaedic: Hematologic Medical Hx - documentation spec Hx of Blood Transfusion No 11/01/24 08:46 Hx of Transfusion in last 3 No 11/01/24 08:46 Months Date of Last Transfusion (if within last 3 months) Ever experience any problems No 11/01/24 08:46 with transfusion(s)? Specify any problems Hx of Preganancy in last 3 N/A 11/01/24 08:46 Months Nurse Filling Out Transfusion DSCHRIBER 11/01/24 08:46 & Questions: Date: 11/01/24 11/01/24 08:46 Time: 08:47 11/01/24 08:46 Patient unable to answer at this time (ie. confused, unrespo /Reproduction History /Reproductive History - nurse orthopaedic: /Reproductive Hx- nurse orthopaedic Hx Now No 11/01/24 08:46 Gestational Age (in weeks): EDC: Hx Hx Para Hx Section SAB No 11/01/24 08:46 PFSH Medical History (Updated 11/01/24 @ 08:53 by Gena Altamirano) Wears glasses Bladder disease Fatty liver High cholesterol History of stress test Anxiety Alcohol use Back pain History of diverticulitis Non-smoker GERD (gastroesophageal reflux disease) Depression with anxiety Arthritis Inguinal hernia of left side without obstruction or gangrene Fracture of coccyx Partial tear of left rotator cuff Asthma Home Medications ?Medication ?Instructions ?Recorded ?Last Taken ?Type albuterol sulfate 90 mcg/actuation 2 puff inhalation Q 6H PRN 05/08/23 Unknown Rx aerosol inhaler shortness of breath or wheez ing #6.7 grams acetaminophen 500 mg tablet 500 mg PO Q6H PRN fever or pain 06/22/24 Unknown History budesonide-formoterol HFA 160 2 puff inhalation Q12H 1 08/22/23 08/07/24 History mcg-4.5 mcg/actuation aerosol inhaler (Symbicort) omeprazole 40 mg capsule,delayed 40 mg PO DAILY 08/07/24 History release tadalafil 5 mg tablet 5 mg PO DAILY 06/22/24 Unkno wn History escitalopram oxalate 20 mg tablet 20 mg PO QDAY Unknown History (Lexapro) Allergy/AdvReac Type Severity Reaction Status Date / Time No Known Allergies Allergy Verified 11/01/24 08:44 Family History Father Myocardial infarction Mother Asthma Arthritis Surgical History (Updated 11/01/24 @ 08:53 by Gena Altamirano) Hx of inguinal hernia repair Hx of colonoscopy S/P umbilical hernia repair, follow-up exam S/P inguinal hernia repair History of right knee joint replacement History of left knee replacement H/O rotator cuff surgery Social History household members: spouse housing: house Smoking Status: Never smoker alcohol intake: current alcohol intake frequency: a few times a week Alcohol type: beer substance use type: does not use Audit: Pertinent Findings Pertinent Findings EKG Perinent findings: 06/23/2024. Sinus tachycardia 105 bpm. Left anterior fascicular block. Stress test pertinent findings: 06/23/2024. No significant ischemia. EF 64% Additional pertinent findings: Sodium level 135 mmol/L. 06/23/2024. No further assessment needed. Recommendation Anesthesia Recommendation Anesthesia recommendation: OPTIMIZED for anesthesia
[2024-11-02] VITALS (8 sets, daily range): BP systolic 113–126; BP diastolic 68–89; PULSE 65–77; RESP 14–16; TEMP 36.2–36.6; O2SAT 92–95; BMI 30.4
--- NOTE | 2024-11-02 09:13 | PCM.PRE.AN2 ---
ASA Classification* ASA Classification ASA Classification: 2 Assessment & Plan Anesthesia* Anesthesia Assessment Anesthesia Assessment: Discussed sedation and/or anesthesia options, risks, benefits, and alternatives with patient/parents/legal guardian/POA. Questions invited. The patient/parents/legal guardian/POA seems to understand and agrees to proceed with anesthesia plan. Reviewed the physical assessment, medical history, allergy history and patient home medications list prior to surgery/procedure/anesthetic and documented any changes. Performed airway and anesthesia risk assessments. Anesthesia Type Anesthesia Type: MAC History Source History Obtained from:: Patient and Chart Anesthesia Focused Assessment* Temperature: 97.8 F Pulse Rate: 77 Blood Pressure: 118/68 Respiratory Rate: 16 Pulse Ox: 94 Oxygen Delivery Method: Room Air Airway Assessment Mouth opens: >3 cm Mallampati Score: IV Teeth Condition: Partial (Patient has 2 implants on the upper jaw. They are tight.) Neck Range of motion (ROM): Limited ROM (Slight decrease in extension) Focused Labs Anesthesia Preop lab: CBC WBC 6.3 K/mm3 (4.4-11.0) 06/23/24 03:45 06/23/24 RBC 4.62 M/mm3 (4.6-6.2) 06/23/24 03:45 06/23/24 Hgb 13.3 g/dL (13.0-16.5) 06/23/24 03:45 06/23/24 Hct 40.4 % (40-54) 06/23/24 03:45 06/23/24 Plt Count 327 K/mm3 (150-450) 06/23/24 03:45 06/23/24 CHEMISTRY Potassium 3.8 mmol/L (3.5-5.1) 06/23/24 03:45 06/23/24 Sodium 135 mmol/L (136-145) L 06/23/24 03:45 06/23/24 Magnesium 1.7 mg/dL (1.6-2.6) 06/22/24 22:50 06/22/24 BUN 16 mg/dL (7-18) 06/23/24 03:45 06/23/24 Creatinine 0.99 mg/dL (0.70-1.30) 06/23/24 03:45 06/23/24 Glucose 110 mg/dL (74-106) H 06/23/24 03:45 06/23/24 TSH 2.25 uIU/mL (0.358-3.74) 07/22/15 12:16 07/22/15 COAG Pre-Assessment Diagnosis/Proposed Procedure Planned Operative Procedure(s): CSCOPE OA Anesthesia History Anesthesia History - attraction worker: Anesthesia History - attraction worker Hx Hospitalization No 11/01/24 08:46 Any Problems With Anesthesia No 11/01/24 08:46 Cholinesterase deficiency No 11/01/24 08:46 You/Your Family Experience No 11/01/24 08:46 fever (hyperthermia) with Relationship Recent Exposure to Contagious No 11/02/24 08:43 Disease Does patient have nerve No 11/01/24 08:46 stimulator Patient instructed to have device shut off --Does patient have Pacemaker No 11/02/24 08:44 or ICD? When Was Last Pacemaker Check QUESTION #4 FULL TEXT: You/Your Family Experience fever (hyperthermia) with Anesthesia Last Oral Intake Last Oral intake: Last Oral Intake NPO since 06:00 11/02/24 08:44 Meds taken in AM with sips of No 11/02/24 08:44 water? Meds patient instructed to take am of surgery Any additional information?: Yes NPO since: 06:00 (Patient finished prep at 6 AM) Meds taken in AM with sips of water?: No PONV PONV - attraction worker: PONV - attraction worker Female No 11/01/24 08:46 HX of Motion Sickness No 11/01/24 08:46 HX of N/V After Surgery No 11/01/24 08:46 Non-Smoker Yes 11/01/24 08:46 Duration of Surgery greater No 11/01/24 08:46 than 60 minutes Number of Risk Factors 1 11/01/24 08:46 PONV Score Low Risk 11/01/24 08:46 Height & Weight Height & Weight: Anesthesia: Height & Weight Height 5 ft 11 in 11/02/24 08:44 Weight: 99.065 kg 11/02/24 08:44 Body Mass Index (BMI) 30.4 11/02/24 08:44 Respiratory Assessment Respiratory Assessment - attraction worker: Respiratory Tract Infection Hx - attraction worker Hx Respiratory Tract Infection No 11/01/24 08:46 STOP Sleep Apnea STOP Sleep Apnea - attraction worker: STOP Sleep Apnea - attraction worker Hx Hypertension No 11/01/24 08:46 Hx Sleep Apnea No 11/01/24 08:46 CPAP No 11/01/24 08:46 BIPAP No 11/01/24 08:46 Do you snore loudly (louder No 11/01/24 08:46 than talking or can be heard Do you often feel tired/ No 11/01/24 08:46 fatigued/ sleepy during daytime? Has anyone observed you stop No 11/01/24 08:46 breathing during sleep? STOP Results Negative 11/01/24 08:46 QUESTION #5 FULL TEXT : Do you snore loudly (louder than talking or can be heard through closed doors)? Tobacco Use History Tobacco Use History - attraction worker: Tobacco Use History - attraction worker Tobacco Use Smoking Status Never smoker 11/01/24 08:46 Hx Tobacco Use No 11/01/24 08:46 Years Smoking Packs Smoked per Day Smoking Cessation Date was within the last 15 years Hx Smoking Cessation Date Hx Smoking Cessation Counseling Hematologic Medial History Hematologic Hx - attraction worker: Hematologic Medical Hx - director food safety Hx of Blood Transfusion No 11/01/24 08:46 Hx of Transfusion in last 3 No 11/01/24 08:46 Months Date of Last Transfusion (if within last 3 months) Ever experience any problems No 11/01/24 08:46 with transfusion(s)? Specify any problems Hx of Preganancy in last 3 N/A 11/01/24 08:46 Months Nurse Filling Out Transfusion DSCHRIBER 11/01/24 08:46 & Questions: Date: 11/01/24 11/01/24 08:46 Time: 08:47 11/01/24 08:46 Patient unable to answer at this time (ie. confused, unrespo /Reproduction History /Reproductive History - attraction worker: /Reproductive Hx- attraction worker Hx Now No 11/01/24 08:46 Gestational Age (in weeks): EDC: Hx Hx Para Hx Section SAB No 11/01/24 08:46 PFSH Medical History Wears glasses Bladder disease Fatty liver High cholesterol History of stress test Anxiety Alcohol use Back pain History of diverticulitis Non-smoker GERD (gastroesophageal reflux disease) Depression with anxiety Arthritis Inguinal hernia of left side without obstruction or gangrene Fracture of coccyx Partial tear of left rotator cuff Asthma Home Medications ?Medication ?Instructions ?Recorded ?Last Taken ?Type albuterol sulfate 90 mcg/actuation 2 puff inhalation Q6H PRN 05/08/23 Unknown Rx aerosol inhaler shortness of breath or wheezing #6.7 grams acetaminophen 500 mg tablet 500 mg PO Q6H PRN fever or pain 06/22/24 Unknown History budesonide-formoterol HFA 160 2 puff inhalation Q12H 06/22/24 11/02/24 06:30 History mcg-4.5 mcg/actuation aerosol inhaler (Symbicort) omeprazole 40 mg capsule,delayed 40 mg PO DAILY 06/22/24 11/01/24 History release tadalafil 5 mg tablet 5 mg PO DAILY 06/22/24 11/01/24 History escitalopram oxalate 20 mg tablet 20 mg PO QDAY 09/04/24 11/01/24 History (Lexapro) Allergy/AdvReac Type Severity Reaction Status Date / Time No Known Allergies Allergy Verified 11/02/24 08:41 Family History Father Myocardial infarction Mother Asthma Arthritis Surgical History Hx of inguinal hernia repair Hx of colonoscopy S/P umbilical hernia repair, follow-up exam S/P inguinal hernia repair History of right knee joint replacement History of left knee replacement H/O rotator cuff surgery Social History household members: spouse housing: house Smoking Status: Never smoker alcohol intake: current alcohol intake frequency: a few times a week Alcohol type: beer substance use type: does not use Review of Systems (Anesthesia) ROS Narrative System reviewed and no additional complaints, except as documented. Physical Exam Resp clear to auscultation bilaterally
--- NOTE | 2024-11-02 09:40 | HP.PCM_ITS ---
HPI - General HPI Narrative PAULO RAMIRES, is a 59 M who presents for screening colonoscopy. His last colonoscopy was 10 years ago. He denies any abdominal pain or blood in the stool. [facility] Medical History Wears glasses Bladder disease Fatty liver High cholesterol History of stress test Anxiety Alcohol use Back pain History of diverticulitis Non-smoker GERD (gastroesophageal reflux disease) Depression with anxiety Arthritis Inguinal hernia of left side without obstruction or gangrene Fracture of coccyx Partial tear of left rotator cuff Asthma Home Medications ?Medication ?Instructions ?Recorded ?Last Taken ?Type albuterol sulfate 90 mcg/actuation 2 puff inhalation Q 6H PRN 05/08/23 Unknown Rx aerosol inhaler shortness of breath or wheez ing #6.7 grams acetaminophen 500 mg tablet 500 mg PO Q6H PRN fever or pain 06/22/24 Unknown History budesonide-formoterol HFA 160 2 puff inhalation Q12H 1 08/22/23 11/02/24 06:30 History mcg-4.5 mcg/actuation aerosol inhaler (Symbicort) omeprazole 40 mg capsule,delayed 40 mg PO DAILY 11/01/24 History release tadalafil 5 mg tablet 5 mg PO DAILY 06/22/2411/01 History escitalopram oxalate 20 mg tablet 20 mg PO QDAY 11/01/24 History (Lexapro) Allergy/AdvReac Type Severity Reaction Status Date / Time No Known Allergies Allergy Verified 11/02/24 08:41 Family History Father Myocardial infarction Mother Asthma Arthritis Surgical History Hx of inguinal hernia repair Hx of colonoscopy S/P umbilical hernia repair, follow-up exam S/P inguinal hernia repair History of right knee joint replacement History of left knee replacement H/O rotator cuff surgery Social History household members: spouse housing: house Smoking Status: Never smoker alcohol intake: current alcohol intake frequency: a few times a week Alcohol type: beer substance use type: does not use Past Medical/Surgical History Planned Operation Planned Operative Procedure(s): CSCOPE OA S.O.S: No Previous Hospitalizations/Surgeries HX Hospitalizations: No HX of Surgeries: FX LEFT LOWER LEG 2011 ACL REPAIR RIGHT LEFT SHOULDER 2014 Any Problems With Anesthesia: No You/Your Family Experience Fever (Hyperthermia) With Anes: No Cholinesterase deficiency: No Cardiovascular Hx Chest Pain within Last 2 months: No Hx of Irregular Heartbeat and/or Afib: No Hx Heart Attack: No Hx Congestive Heart Failure: No Hx Rheumatic Fever: No Hx Hypertension: No Hx Internal Defibrillator: No Hx Pacemaker: No Hx Cardiac Catheterization: No Hx Cardiac Surgery/Stents/Etc.: No Hx Stress Test: Yes (1999, ECHO 2006) Hx Pain in Legs when Walking/Leg Cramps: No Respiratory Chronic Cough: No HX of Shortness of Breath: No Hoarseness: No Hx Chronic Obstructive Pulmonary Disease (COPD): No Hx Asthma: Yes (ON INHALERS) Hx Emphysema: No Hx Sleep Apnea: No CPAP: No BIPAP: No Hx Respiratory Tract Infection/Cold (presently): No Do You Snore Loudly (louder than talking or can be heard): No Do You Often Feel Tired/ Fatigued/ Sleepy Dring Daytime?: No Has Anyone Observed You Stop Breathing During Sleep?: No Result (for STOP score): Negative Hx Smoking: No Smoking Status: Never smoker Gastrointestinal Hx Gastrointestinal Disorders: No Hx Gastrointestinal Bleed: No Hx Ulcer: No Hx Hiatal Hernia: No Difficulty Chewing/Swallowing: No Special diet followed at home: No Hx Unplanned Weight Loss of 20#: No HX Unplanned Weight Gain of 20#: No Neurological Hx Seizures: No HX Syncope/Blackout Spells/Unconsciousness: No Hx Transient Ischemic Attacks (TIA): No Hx Multiple Sclerosis: No Hx Parkinson's Disease: No Hx Head/Neck Injury: No Hx Headaches: No Hx Back Injury/Pain: No Recent Onset of Speech Difficulty: No Restless Legs: No Does patient have nerve stimulator: No Blood Disorder Hx Leukemia: No Bleeding Tendencies: No Hx Deep Vein Thrombosis: No Hx High Cholesterol: No Blood Transmitted Disease: No Hx Hepatitis: No Hx Cirrhosis: No Hx Anemia: No Hx Blood Disorders: No Reproduction : No Genitourinary Hx Renal Disease: No Musculoskeletal Hx Arthritis: Yes Hx Rheumatoid Arthritis: No Hx Gout: No Recent Onset of an Orthopedic Problem: No (CHRONIC SHOULDER PAIN) Endocrine Hx Diabetes: No Thyroid Disease: No Hx Steroid Therapy: No Psycho/Social Hx Substance Use: No Hx Alcohol Use: Yes (3 BEERS DAILY) Hx Anxiety: Yes Hx Depression: Yes (ON MED) Mental Illness: No Hx Dementia: No Miscellaneous Hx Cancer: No Recent Exposure to Contagious Disease: No Hx of C-Diff: No Any Loose Teeth: No Allergies No Known Allergies Allergy (Verified 11/02/24 08:41) Discharge Is Pt Admitted From a Snf, or a Longterm: No After D/C, Where Do you Plan to Go: Return Home Vital Signs Vital Signs Vital Signs: 11/02/24 08:43 11/02/24 08:44 11/02/24 09:20 Temperature 97.8 F 97.8 F Temperature Source Temporal Pulse Rate 77 77 Respiratory Rate 16 16 Respiratory Pattern Normal Blood Pressure 118/68 118/68 Blood Pressure Mean 84 Blood Pressure Source Monitor Blood Pressure Position Semi-Fowlers Blood Pressure Location Left Arm Pulse Ox 94 94 Oxygen Delivery Method Room Air Room Air Weight Weight: 218 lb 6.4 oz Body Mass Index (BMI) 30.4 Physical Exam Const alert and oriented x3 HEENT normocephalic Eyes PERRL Resp normal respiratory effort and normal air movement Cardio regular rate and regular rhythm GI soft to palpation, non-tender and non-distended Extremity normal to inspection Assessment & Plan Assessment/Plan (1) Encounter for screening for malignant neoplasm of colon: PLAN: I explained endoscopy in detail to the patient. I explained the risks including but not limited to stroke or heart attack with anesthesia, perforation of the GI tract, bleeding, infection. I explained that any of these could necessitate further emergency surgery. The patient understands and all questions were answered sufficiently. The patient wishes to proceed with procedure. Willie Louise MD Pager: [facility] [address] [place] [address], [address] [place] [address] Office: Surgery Risks - Colonoscopy Risks Include but are not Limited To: Risks include but are not limited to: Bleeding, perforation requiring further surgery, inability to complete colonoscopy requiring barium enema.
--- NOTE | 2024-11-02 10:09 | OP.COLON_ITS ---
Patient Name: Marques Soler Procedure Date: 11/02/2024 9:32 AM Date of : 1965 Age: 59 Procedure: Colonoscopy Indications: Screening for colorectal malignant neoplasm Providers: Willie Louise MD Medicines: Propofol per Anesthesia Patient Profile: This is a 59 year old male. Refer to note in patient chart for documentation of history and physical. Last Colonoscopy: 10 years ago. Complications: No immediate complications. Procedure: Pre-Anesthesia Assessment: - Prior to the procedure, a History and Physical was performed, and patient medications and allergies were reviewed. The patient's tolerance of previous anesthesia was also reviewed. The risks and benefits of the procedure and the sedation options and risks were discussed with the patient. All questions were answered, and informed consent was obtained. Prior Anticoagulants: The patient has taken no anticoagulant or antiplatelet agents. After reviewing the risks and benefits, the patient was deemed in satisfactory condition to undergo the procedure. After I obtained informed consent, the scope was passed under direct vision. Throughout the procedure, the patient's blood pressure, pulse, and oxygen saturations were monitored continuously. The pediatric colonoscope was introduced through the anus and advanced to the cecum, identified by appendiceal orifice and ileocecal valve. The colonoscopy was performed without difficulty. The patient tolerated the procedure well. The quality of the bowel preparation was good. The ileocecal valve, appendiceal orifice, and rectum were photographed. Scope In: 9:53:16 AM Scope Withdrawal Time 0 hours 6 minutes 4 seconds Scope Out: 10:03:52 AM Total Procedure Duration Time 0 hours 10 minutes 36 seconds Findings: The entire examined colon appeared normal on direct and retroflexion views. Impression: - The entire examined colon is normal on direct and retroflexion views. - No specimens collected. Recommendation: - Discharge patient to home. - Resume previous diet. - Continue present medications. - Repeat colonoscopy in 10 years for screening purposes. Procedure Code(s): --- Professional --- 21710, Colonoscopy, flexible; diagnostic, including collection of specimen(s) by brushing or washing, when performed (separate procedure) Diagnosis Code(s): --- Professional --- Z12.11, Encounter for screening for malignant neoplasm of colon CPT copyright 2021 [employer]. All rights reserved. The codes documented in this report are preliminary and upon production corrugator review may be revised to meet current compliance requirements. Willie Louise MD 11/02/2024 10:08:49 AM This report has been signed electronically. Number of Addenda: 0 Note Initiated On: 11/02/2024 9:32 AM
--- NOTE | 2024-11-02 10:09 | OP.CCLET_ITS ---
11/02/2024 Jennifer Lopez [facility] [address] [place] [address] Re : Colonoscopy procedure for Marques Soler Dear Dr. Lopez This procedure was performed on October. My impressions and recommendations are as follows: Impressions : - The entire examined colon is normal on direct and retroflexion views. - No specimens collected. Recommendations : - Discharge patient to home. - Resume previous diet. - Continue present medications. - Repeat colonoscopy in 10 years for screening purposes. My findings are described in the full procedure note, which is enclosed. If I can be of further assistance, please feel free to contact me at Doctor phone number(s): , Work: . Sincerely, Willie Louise MD 11/02/2024 10:08:49 AM This report has been signed electronically.
--- NOTE | 2024-11-02 10:10 | PCM.POST.ANE ---
Anesthesia: Postop Eval I Current Vital Signs Temperature: 97.7 F Pulse Rate: 70 Blood Pressure: 113/76 Respiratory Rate: 16 Pulse Ox: 95 Oxygen Delivery Method: Room Air Assessment Airway patent: Yes Spontaneous unlabored respirations: Yes Mental status: Asleep nausea: No Vomiting: No Anesthesia Complication: No Fluid Hydration Crystalloid volume administer (ml): 30 Total IV fluid infused: 30 Progress Note Anesthesia document: Postop Eval 1 completed: Yes
--- NOTE | 2024-11-02 22:26 | PCM.POSTANE2 ---
Anesthesia Postop Eval I Sum Postop Eval Completion status Anesthesia document: Postop Eval 1 completed: Yes Anesthesia Postop Eval I Summary Anesthesia Postop Eval I Summary: Anesthesia Postop Eval I: Assessment Summary Airway patent Yes 11/02/24 10:11 [email or web address] Spontaneous unlabored Yes 11/02/24 10:11 [email or web address] respirations Mental status Asleep 11/02/24 10:11 [email or web address] nausea No 11/02/24 10:11 [email or web address] Vomiting No 11/02/24 10:11 [email or web address] Anesthesia Postop Eval I: Fluid Summary Crystalloid volume administer 30 11/02/24 10:11 [email or web address] (ml) Colloids volume administered ( ml) Blood Product volume administered (ml) Total IV fluid infused 30 11/02/24 10:11 [email or web address] Anesthesia Postop Eval I: Summary Notes Anesthesia Complication No 11/02/24 10:11 [email or web address] Anesthesia Complication Comment: Post-operative progress note Anesthesia: Postop Eval II Evaluation Mental status: Awake and Calm Pain Level: 0 nausea: No Vomiting: No Complications Anesthesia Complication: No
== END 2024-11-02 10:39 | disposition home or self-care (01) ==
LOC: EN 08:25 → AC 08:26
PROVIDERS: PCP Family Medicine; Referring Provider Family Medicine; Visit Provider Surgery
PROC: 0DJD8ZZ Inspection of Lower Intestinal Tract, Via Natural or Artificial Opening Endoscopic (ICD-10-PCS; CPT 45378; principal; 2024-11-02 09:25)
DX: Z12.11 Encounter for screening for malignant neoplasm of colon (principal); E78.00 Pure hypercholesterolemia, unspecified; K21.9 Gastro-esophageal reflux disease without esophagitis; J45.909 Unspecified asthma, uncomplicated; F32.A Depression, unspecified; F41.9 Anxiety disorder, unspecified; Z79.51 Long term (current) use of inhaled steroids; Z79.899 Other long term (current) drug therapy; Z87.19 Personal history of other diseases of the digestive system
CPT/HCPCS: 45378; A4216; J2405

== ENCOUNTER → 2024-12-19 | Outpatient (CLI) | payer OTHER, SELFPAY | END | disposition home or self-care (01) | PROVIDERS: PCP Family Medicine; Referring Provider Internal Medicine Critical Care Medicine; Visit Provider Internal Medicine Critical Care Medicine | DX: R91.8 Other nonspecific abnormal finding of lung field (principal) | CPT/HCPCS: 94060; 94726; 94729 ==

== ENCOUNTER → 2024-12-22 | Outpatient (CLI) | payer OTHER, SELFPAY ==
--- NOTE | 2024-12-22 14:56 | CT_ITS ---
PROCEDURE: CHEST WITHOUT CONTRAST 12/22/2024 REASON FOR EXAM: H/O PULMONARY NODULES TECHNIQUE: Chest CT without contrast. Coronal and Sagittal reconstruction series were provided. One or more dose reduction techniques were used (e.g., Automated exposure control, adjustment of the mA and/or kV according to patient size, use of iterative reconstruction technique RADIATION DOSE SUMMARY: CTDlvol: 15.95 mGy DLP: 641.54 mGycm COMPARISON: Prior study dated June 22, 2024. FINDINGS: Hardware: None Lymph nodes: Precarinal lymph node measuring 1.5 cm. Heart and Vasculature: Coronary artery calcifications are noted. Coronary Artery Calcifications: Present Lungs and Airways: Mild residual changes persist seen in the lower lobes although there has been a moderate degree of improvement. There is a 9 mm well-defined nodule in the anterior inferior aspect of the right upper lower lobe abutting the right major fissure. This was only partially visualized on prior study. Stable 7 mm nodule along the fissure in the left lower lobe as seen on axial image number 70 Pleura: Unremarkable Upper Abdomen: Unremarkable Bones: Degenerative changes of the thoracic spine. CT/Chest without Contrast IMPRESSION: Coronary artery calcification (CAC) is is present Interval improvement in the previously seen infiltrates in the lower lobes. Re sidual changes persist. Stable examination. Reading Location: [id number]
[2024-12-22 16:05] LABS: Absolute Lymphocyte Count 1.42 X10^3/uL (0.83-4.51); Absolute Neutrophil Count 2.5 X10^3/uL (2.0-7.7); Basophil# 0.03 X10^3/uL; Basophil% 0.6 % (0-1); Eosinophil# 0.19 X10^3/uL; Eosinophils% 4.1 % (0-5); Hematocrit 43.3 % (40-54); Hemoglobin 14.6 g/dL (13.0-16.5); Lymphocyte # 1.42 X10^3/ul (0.83-4.51); Lymphocyte % 30.3 % (19-41); Mean Corp Hgb Conc 33.7 g/dL (32-36); Mean Corpuscular Hgb 28.8 pg (27.0-32.0); Mean Corpuscular Volume 85.4 fL (80-94); Mean Platelet Vol. 8.7 fl (6.2-12.0); Monocyte# 0.54 X10^3/uL; Monocyte% 11.5 % (0-10); NRBC Flagged by Analyzer 0 % (0-5); Neutrophil # 2.49 X10^3/uL (2.7-7.7); Neutrophil % 53.3 % (47-70); Platelet Count 276 K/mm3 (150-450); RBC Distribution Width CV 13.9 % (11.6-14.6); RBC Distribution Width SD 43.2 fl (35.1-43.9); Red Blood Count 5.07 M/mm3 (4.6-6.2); White Blood Count 4.7 K/mm3 (4.4-11.0)
[2024-12-28 08:09] LABS: Alternaria tenuis 0.34 kU/L (Class I); Aspergillus fumigatus <0.10 kU/L (Class 0); Bermuda Grass 0.87 kU/L (Class II); Birch 2.59 kU/L (Class III); Black Walnut 0.61 kU/L (Class II); Cat Hair / Dander,Stand 0.14 kU/L (Class 0/I); Cedar, Mountain 0.53 kU/L (Class I); Cladosporium herbarum <0.10 kU/L (Class 0); Cockroach, American 0.55 kU/L (Class I); Cottonwood 0.62 kU/L (Class II); D farinae Mite <0.10 kU/L (Class 0); D pteronyssinus <0.10 kU/L (Class 0); Dog Epithelia 0.52 kU/L (Class I); Elm, American White 0.71 kU/L (Class II); Immunoglobulin E 289 IU/mL (6-495); Maple/Box Elder 0.79 kU/L (Class II); Mouse Urine <0.10 kU/L (Class 0); Mulberry, White 0.51 kU/L (Class I); Oak, White 1.03 kU/L (Class II); Pecan 0.49 kU/L (Class I); Penicillium Notatum <0.10 kU/L (Class 0); Pigweed, Rough 0.64 kU/L (Class II); Ragweed, Short/Common 1.15 kU/L (Class II); Russian Thistle 0.71 kU/L (Class II); Sheep Sorrel 0.75 kU/L (Class II); Sycamore, American 0.79 kU/L (Class II); Timothy Grass 0.67 kU/L (Class II)
== END | disposition home or self-care (01) ==
PROVIDERS: PCP Family Medicine; Referring Provider Internal Medicine Critical Care Medicine; Visit Provider Internal Medicine Critical Care Medicine
DX: R91.8 Other nonspecific abnormal finding of lung field (principal); J45.909 Unspecified asthma, uncomplicated
CPT/HCPCS: 36415; 71250; 82785; 85025; 86003; 86037; 86606

== ENCOUNTER → 2025-07-25 | Outpatient (CLI) | payer OTHER, SELFPAY ==
--- NOTE | 2025-07-25 13:00 | CT_ITS ---
PROCEDURE: CHEST WITHOUT CONTRAST 07/25/2025 REASON FOR EXAM: MULTIPLE LUNG NODULES TECHNIQUE: CT chest was performed without contrast. Coronal and Sagittal reconstruction series were generated. One or more dose reduction techniques were used (e.g., Automated exposure control, adjustment of the mA and/or kV according to patient size, use of iterative reconstruction technique RADIATION DOSE SUMMARY: CTDlvol: 11.99 mGy DLP: 479.33 mGycm COMPARISON: 12/22/2024 FINDINGS: Note that evaluation of the vasculature, melony, and soft tissues is limited in the absence of IV contrast. Heart/pericardium: Mild/moderate but multivessel calcific coronary atherosclerosis and/or stents. Aorta: Unremarkable. Pulmonary arteries: Normal in caliber. Lymph nodes: Similar precarinal node, 11 mm short axis, presumably reactive given stability. Lungs/pleura: Minimal atelectasis/scarring. Multiple similar fissural bilateral likely intrapulmonary lymph nodes, annotated on series 4. Similar subpleural posterior RIGHT lower lobe nodule measuring 6 x 4 mm since at least 06/23/2024 (series 4, image 102). Nearby 3 mm micronodule on image 102 similar to 12/22/2024 probably obscured by airspace disease 06/23/2024. 3 mm subpleural LEFT lower lobe micronodule lateral costophrenic sulcus unchanged from 12/22/2024 not previously definitely visible on 06/23/2024 possibly obscured by airspace disease. Airways: Unremarkable. Chest wall: Unremarkable. Upper abdomen: Hepatic steatosis. Musculoskeletal: Degenerative findings. Subacute to chronic appearing ununited RIGHT rib fracture is new from prior. CT/Chest without Contrast IMPRESSION: 1. Pulmonary nodules similar to at least 12/22/2024 as described, many of which are fissural and likely reflect intrapulmonary lymph nodes. Nodules of this size are statistically benign and require no spec [facility] follow-up in a low risk patient. Otherwise, recommend follow-up CT chest in one year per the Fleischner society recommendat ions for pulmonary nodule follow-up, presuming no history of malignancy or known immunosuppression, in which case closer follow-u p may be warranted. 2. Hepatic steatosis. 3. Additional description as above. Reading Location: [id number]
== END | disposition home or self-care (01) ==
LOC: CT 12:59
PROVIDERS: PCP Family Medicine; Referring Provider Nurse Practitioner Acute Care; Visit Provider Nurse Practitioner Acute Care
DX: R91.8 Other nonspecific abnormal finding of lung field (principal)
CPT/HCPCS: 71250